=== PATIENT | male | born 1935 | race Caucasian/White ===

== ENCOUNTER 2022-01-10 07:18 | Outpatient (REF) | payer MEDICARE, SELFPAY ==
[2022-01-10 11:27] LABS: Basophils Percent Auto 0.6 % (0-2); Eosinophils Absolute Auto 0.5 X10*3/uL (0.0-0.4); Eosinophils Percent Auto 8.9 % (0-4); Hematocrit 45.2 % (42.0-52.0); Imm Gran Abs Auto 0.02 X10*3/uL (0.00-0.03); Imm Gran Pct Auto 0.4 % (0.0-0.4); Lymphocytes Absolute Auto 1.5 X10*3/uL (1.2-4.9); Lymphocytes Percent Auto 29.7 % (20-40); MANUAL DIFF FLAG SCAN; Mean Corpuscular HGB Conc 33.2 g/dl (31.0-36.0); Mean Corpuscular Volume 93.4 fL (80.0-98.0); Monocytes Absolute Auto 0.6 X10*3/uL (0.1-1.2); Monocytes Percent Auto 12.3 % (2-11); Neutrophils Absolute Auto 2.4 x10*3/uL (2.0-8.3); Neutrophils Percent Auto 48.1 % (45-73); PLT CLUMP 1; Red Blood Count 4.84 X10*6/uL (4.60-5.80); Red Cell Distribution Width 12.1 % (11.0-16.0); SCAN SMEAR FLAG 1
[2022-01-10 11:30] LABS: Appearance Urine HAZY; Color Urine YELLOW; Glucose Urine UA NEG (NEG); Leukocyte Esterase Urine 1+ (NEG); Nitrite Urine POS (NEG); Specific Gravity - Urine 1.025 (1.005-1.025); Urine Blood 2+ (NEG); Urine Ketones NEG (NEG); Urine Protein 1+ MG/DL (NEG-TRACE)
[2022-01-10 11:45] LABS: White Blood Count 5.1 X10*3/uL (4.8-10.8)
[2022-01-10 11:46] LABS: Platelet Count 25 X10*3/uL (160-400)
[2022-01-10 11:47] LABS: SLIDE REVIEW VERIFIED; Squamous Epithelial Cell Urine TRACE /LPF
[2022-01-10 11:48] LABS: Bacteria Urine 1+ /LPF; RBC Urine 0-2 /HPF (0)
[2022-01-10 11:49] LABS: Alanine Aminotransferase 16 U/L (0-40); Alkaline Phosphatase 64 U/L (39-117); Anion Gap 11 (12-20); Aspartate Amino Transferase 20 U/L (5-37); Bilirubin Total 0.8 mg/dL (0.0-1.0); Blood Urea Nitrogen 11 mg/dL (9-16); Calcium 8.8 mg/dL (8.4-10.2); Carbon Dioxide 27 mmol/L (22-29); Chloride 110 mmol/L (96-108); Cholesterol 217 mg/dL; Estimated Glomerular Filt Rate > 60; Glucose Fasting 103 mg/dL (60-99); HDL Cholesterol 40 mg/dL; LDL Cholesterol Calculated 156 mg/dl; Potassium 4.5 mmol/L (3.3-5.1); Sodium 143 mmol/L (135-145); Total Protein 6.5 g/dL (6.5-8.0); Triglycerides 107 mg/dL
[2022-01-10 12:00] LABS: Prostate Specific Antigen Scr 5.53 ng/mL (<0.05-4.0); TSH reflex Free T4 2.12 uIU/mL (0.32-4.0)
== END 2022-01-10 07:19 | disposition home or self-care (01) ==
LOC: HO.WFDLDS 07:18
PROVIDERS: Visit Provider Family Medicine
DX: Z00.00 Encounter for general adult medical examination without abnormal findings (principal); Z12.5 Encounter for screening for malignant neoplasm of prostate
CPT/HCPCS: 36415; 80053; 80061; 81001; 84153; 84443; 85025

== ENCOUNTER 2022-01-12 09:57 | Outpatient (REF) | payer MEDICARE, SELFPAY ==
[2022-01-12 10:55] LABS: Appearance Urine HAZY; Color Urine YELLOW; Glucose Urine UA NEG (NEG); Leukocyte Esterase Urine 2+ (NEG); Nitrite Urine POS (NEG); Urine Blood TRACE (NEG); Urine Ketones NEG (NEG); Urine Protein NEG (NEG-TRACE)
[2022-01-12 11:16] LABS: WBC Urine TNTC /HPF (0-4)
[2022-01-12 11:17] LABS: Bacteria Urine TRACE /LPF; Squamous Epithelial Cell Urine 1+ /LPF
== END 2022-01-12 09:58 | disposition home or self-care (01) ==
LOC: HO.LAB 09:57
PROVIDERS: Visit Provider Family Medicine
DX: R82.90 Unspecified abnormal findings in urine (principal)
CPT/HCPCS: 81001; 87086; 87088; 87186

== ENCOUNTER 2022-03-03 07:51 | Outpatient (REF) | payer MEDICARE, SELFPAY ==
[2022-03-03 11:30] LABS: MANUAL DIFF FLAG NO
[2022-03-03 11:43] LABS: Basophils Absolute Auto 0.1 X10*3/uL (0.0-0.2); Basophils Percent Auto 0.9 % (0-2); Eosinophils Absolute Auto 0.5 X10*3/uL (0.0-0.4); Eosinophils Percent Auto 8.7 % (0-4); Hematocrit 46.6 % (42.0-52.0); Hemoglobin 15.7 g/dl (14.0-18.0); Imm Gran Abs Auto 0.02 X10*3/uL (0.00-0.03); Imm Gran Pct Auto 0.3 % (0.0-0.4); Lymphocytes Absolute Auto 1.4 X10*3/uL (1.2-4.9); Lymphocytes Percent Auto 24.3 % (20-40); Mean Corpuscular HGB Conc 33.7 g/dl (31.0-36.0); Mean Corpuscular Hemoglobin 31.3 pg (27.0-33.0); Mean Platelet Volume 13.6 fL (9.4-12.4); Monocytes Absolute Auto 0.6 X10*3/uL (0.1-1.2); Monocytes Percent Auto 9.7 % (2-11); Neutrophils Absolute Auto 3.2 x10*3/uL (2.0-8.3); Neutrophils Percent Auto 56.1 % (45-73); Red Blood Count 5.01 X10*6/uL (4.60-5.80); Red Cell Distribution Width 12.3 % (11.0-16.0); White Blood Count 5.8 X10*3/uL (4.8-10.8)
[2022-03-03 11:44] LABS: Platelet Count 32 X10*3/uL (160-400)
[2022-03-03 12:05] LABS: INTERNATIONAL NORM RATIO 0.9 (0.9-1.1); Prothrombin Time 10.6 SEC (10.0-13.1)
[2022-03-03 12:08] LABS: Partial Thromboplastin Time 32.5 SEC (26.0-36.4)
[2022-03-03 12:14] LABS: Lactate Dehydrogenase 198 U/L (118-273)
[2022-03-03 12:28] LABS: Erythrocyte Sedimentation Rate 6 MM/HR (0-15)
[2022-03-04 08:06] LABS: HBc Num1 0.11 S/CO (0.00-0.79); HIV AB/AG Nonreactive (Nonreactive); HIV Num 1 0.06 S/CO (0.00-0.99); Hepatitis B Core Antibody Nonreactive (Nonreactive); Hepatitis B Surface Antigen Negative (Negative); ~HepC Num1 0.08 S/CO (0.00-0.79); ~Hepatitis B Surface Antibody NONREACTIVE (Nonreactive); ~Hepatitis C Antibody Nonreactive (Nonreactive)
[2022-03-05 23:12] LABS: Anti Nuclear Antibody Screen NEGATIVE (NEGATIVE)
== END 2022-03-03 07:52 | disposition home or self-care (01) ==
LOC: HO.WFDLDS 07:51
PROVIDERS: Visit Provider Family Medicine
DX: Z00.00 Encounter for general adult medical examination without abnormal findings (principal); Z11.4 Encounter for screening for human immunodeficiency virus [HIV]; Z11.3 Encounter for screening for infections with a predominantly sexual mode of transmission; D69.6 Thrombocytopenia, unspecified
CPT/HCPCS: 36415; 83615; 85025; 85610; 85652; 85730; 86038; 86039; 86704; 86706; 86803; 87340; 87389

== ENCOUNTER 2022-03-30 08:22 | Outpatient (REF) | payer MEDICARE, SELFPAY ==
[2022-03-30 11:25] LABS: MANUAL DIFF FLAG NO
[2022-03-30 11:36] LABS: Basophils Percent Auto 0.8 % (0-2); Eosinophils Absolute Auto 0.5 X10*3/uL (0.0-0.4); Eosinophils Percent Auto 8.6 % (0-4); Hematocrit 44.4 % (42.0-52.0); Hemoglobin 15.1 g/dl (14.0-18.0); Imm Gran Abs Auto 0.02 X10*3/uL (0.00-0.03); Imm Gran Pct Auto 0.4 % (0.0-0.4); Lymphocytes Absolute Auto 1.5 X10*3/uL (1.2-4.9); Lymphocytes Percent Auto 27.2 % (20-40); Mean Corpuscular Hemoglobin 31.3 pg (27.0-33.0); Mean Corpuscular Volume 92.1 fL (80.0-98.0); Monocytes Absolute Auto 0.5 X10*3/uL (0.1-1.2); Monocytes Percent Auto 10.1 % (2-11); Neutrophils Absolute Auto 2.8 x10*3/uL (2.0-8.3); Neutrophils Percent Auto 52.9 % (45-73); Platelet Count 34 X10*3/uL (160-400); Red Blood Count 4.82 X10*6/uL (4.60-5.80); Red Cell Distribution Width 12.2 % (11.0-16.0); White Blood Count 5.3 X10*3/uL (4.8-10.8)
[2022-03-30 11:48] LABS: Alanine Aminotransferase 16 U/L (0-40); Albumin Level 4.1 g/dL (3.5-5.0); Alkaline Phosphatase 65 U/L (39-117); Anion Gap 14 (12-20); Aspartate Amino Transferase 21 U/L (5-37); Bilirubin Total 1.7 mg/dL (0.0-1.0); Blood Urea Nitrogen 12 mg/dL (9-16); Calcium 9.3 mg/dL (8.4-10.2); Carbon Dioxide 26 mmol/L (22-29); Chloride 109 mmol/L (96-108); Estimated Glomerular Filt Rate > 60; Glucose Random 95 mg/dL (60-115); Potassium 5.2 mmol/L (3.3-5.1); Sodium 144 mmol/L (135-145); Total Protein 6.5 g/dL (6.5-8.0)
[2022-03-30 12:14] LABS: Prostate Specific Antigen Scr 5.15 ng/mL (<0.05-4.0)
== END 2022-03-30 08:23 | disposition home or self-care (01) ==
LOC: HO.WFDLDS 08:22
PROVIDERS: Visit Provider Family Medicine
DX: Z00.00 Encounter for general adult medical examination without abnormal findings (principal); Z12.5 Encounter for screening for malignant neoplasm of prostate; D69.6 Thrombocytopenia, unspecified
CPT/HCPCS: 36415; 80053; 84153; 85025

== ENCOUNTER 2022-08-03 11:16 | Outpatient (REF) | payer MEDICARE, SELFPAY ==
[2022-08-03 14:35] LABS: Baso%MD 0.6 %; Eos%MD 6.4 %; Hematocrit 47.1 % (42.0-52.0); Hemoglobin 15.7 g/dl (14.0-18.0); IG%MD 0.3 %; Lymph%MD 23.6 %; Mean Corpuscular HGB Conc 33.3 g/dl (31.0-36.0); Mean Corpuscular Volume 92.9 fL (80.0-98.0); Mono%MD 10.9 %; Neut%MD 58.2 %; PLT CLUMP 1; Red Blood Count 5.07 X10*6/uL (4.60-5.80); Red Cell Distribution Width 12.2 % (11.0-16.0)
[2022-08-03 14:46] LABS: Anion Gap 13 (12-20); Blood Urea Nitrogen 14 mg/dL (9-16); Calcium 9.4 mg/dL (8.4-10.2); Carbon Dioxide 27 mmol/L (22-29); Chloride 108 mmol/L (96-108); Estimated Glomerular Filt Rate > 60; Glucose Random 89 mg/dL (60-115); Potassium 4.3 mmol/L (3.3-5.1); Sodium 144 mmol/L (135-145)
[2022-08-03 15:09] LABS: Band Neutrophils Percent 2 % (3-5); Basophils Percent Manual 1 % (0-2); Eosinophils Percent Manual 5 % (0-4); Lymphocytes Percent Manual 25 % (20-40); Monocytes Percent Manual 9 % (2-11); Neutrophils Percent Manual 58 % (45-73)
[2022-08-03 15:11] LABS: RBC Morphology NORMAL
[2022-08-03 15:12] LABS: Giant Platelet PRESENT; Large Platelet PRESENT; Platelet Estimate DECREASED (NORMAL); Platelet Morphology Comment NOTED
[2022-08-03 15:14] LABS: Basophils Abs Manual 0.1 X10*3/uL (0.0-0.2); Eosinophils Absolute Manual 0.3 X10*3/uL (0.0-0.4); Lymphocytes Absolute Manual 1.6 X10*3/uL (1.2-4.9); Monocytes Absolute Manual 0.6 X10*3/uL (0.1-1.2); Neutrophils Absolute Manual 3.7 X10*3/uL (2.0-8.3); Platelet Count 41 X10*3/uL (160-400); White Blood Count 6.2 X10*3/uL (4.8-10.8)
== END 2022-08-03 11:17 | disposition home or self-care (01) ==
LOC: HO.WFDLDS 11:16
PROVIDERS: Visit Provider Family Medicine
DX: Z00.00 Encounter for general adult medical examination without abnormal findings (principal); D69.6 Thrombocytopenia, unspecified
CPT/HCPCS: 36415; 80048; 85007; 85027

== ENCOUNTER 2023-03-08 08:53 | Outpatient (AMB) | payer MEDICARE, SELFPAY ==
[2023-03-08 08:56] VITALS: BP 130/74; PULSE 48; O2SAT 99; BMI 25.0
--- NOTE | 2023-03-08 08:56 | A.OFFPC_ITS ---
Vital Signs 03/08/23 08:56 Height 5 ft 11.5 in Weight 181 lb 8 oz BMI 25.0 BP 130/74 Blood Pressure Location Lt brachial Pulse 48 L Pulse Source Pulse Oximeter Pulse Oximetry (%) 99 Oxygen Delivery Method Room Air Intake Visit Reasons: Extended exam with f/u labs and health maint. Intake Note: Patient is here for extended exam today, did not get his labs done. Allergies No Known Allergies Allergy (Verified 03/08/23 09:01) Tobacco use date assessed: 03/08/23 Fall risk assessment: No Falls in past year Last assessed Fall Risk: 03/08/23 Dental Screening Dental Screen Date: 03/08/23 Did you have a dental visit in the last 12 months?: Yes Did you have a dental problem in the last 6 months where you did not have access to dental care?: No Was dental information given to patient?: Patient has dentist HPI Extended exam with f/u labs and health maint. HPI Details 87 y/o male presents for an extended exam with f/u labs and health maintenance. No recent labs to review. Pt had declined further workup for significant thrombocytopenia despite explaining to pt. that he could have a significant or even life threatening internal bleed. HPI Comments History of Present Illness Details Documentation assistance for Wyatt Rizo MD, was provided by Edvin Redmond, [employer] on 03/08/2023 9:40 AM ADRIANA. Koko, Dr. Rizo, have read, observed, and verified documentation. [facility] Medical History History of blood clots Right leg DVT Social History Housing: House Patient Tobacco Use Status: Never used Tobacco e-Cigarette/Vaping Use: Never Used Second Hand Smoke Exposure: No service: Yes Current occupational status: retired Current occupational exposures/hazards: No Cognitive needs: No Hearing needs: No Vision needs: Yes Questionnaire PHQ-9 Over the last 2 weeks, how often have you been bothered by any of the following problems? 1. Little interest or pleasure in doing things: not at all 2. Feeling down, depressed, or hopeless: not at all 3. Trouble falling or staying asleep, or sleeping too much: not at all 4. Feeling tired or having little energy: not at all 5. Poor appetite or overeating: not at all 6. Feeling bad about yourself - or that you are a failure or have let yourself or your family down: not at all 7. Trouble concentrating on things, such as reading the newspaper or watching television: not at all 8. Moving or speaking so slowly that other people could have noticed. Or the opposite - being so fidgety or restless that you have been moving around a lot more than usual: not at all 9. Thoughts that you would be better off or of hurting yourself in some way: not at all Total score: 0 Source: Developed by Drs. Billy Cates, Niru Downs, Jagjit Lilly and colleagues, with an educational eric from [employer]. Thrive Questionnaire Date Thrive assessed: 11/15/21 I am a: Patient What is your living situation today?: I have a steady place to live Within the past 12 months, did the food you bought not last and you didn't have the money to get more?: Never true Within the past 12 months, did you worry whether your food would run out before you got money to buy more?: Never true Do you have trouble paying for medicines?: No Do you have trouble getting transportation to medical appointments?: No Do you have trouble paying your heating and electricity bill?: No Do you have trouble taking care of your child, family member or friend?: No Do you have trouble with day-to-day activities such as bathing, preparing meals, shopping, managing finances, etc.?: No Are you currently unemployed and looking for a job?: No Are you interested in more education?: No AUDIT C Alcohol Use Questionnaire (AUDIT-C) 1. How often do you have a drink containing alcohol?: Never 3. How often do you have six or more drinks on one occasion?: Never Total Score: 0 CHEY-7 AMB Questionnaire CHEY-7 Date CHEY - 7 assessed: 03/08/23 Feeling nervous, anxious, or on edge: 0 = Not at all Not being able to stop or control worryin = Not at all Worrying too much about different things: 0 = Not at all Trouble relaxin = Not at all Being so restless that it is hard to sit still: 0 = Not at all Becoming easily annoyed or irritable: 0 = Not at all Feeling afraid as if something awful might happen: 0 = Not at all Total CHEY-7 score (0-4 normal; 5-9 mild; 10-14 moderate; 15-21 severe): 0 Source: Developed by Drs. Billy Cates, Niru Downs, Jagjit Lilly and colleagues, with an educational eric from [employer]. Review of Systems Const Denies chills, Denies fatigue, Denies fever(s), Denies headache(s) and Denies weakness Eyes Denies change in vision ENT Denies dizziness, Denies headache(s), Denies hearing loss, Denies nasal congestion, Denies sinus pain, Denies sinus pressure and Denies sore throat Card Denies chest pain, Denies lightheadedness, Denies dyspnea and Denies other (palpitations) Resp Denies cough, Denies dyspnea and Denies wheezing GI Denies abdominal pain, Denies melena, Denies hematochezia, Denies change in bowel habits, Denies dyspepsia and Denies nausea Denies hematuria and Denies dysuria Musc Denies abnormal gait, Denies myalgias, Denies arthralgias, Denies numbness and Denies tingling Skin/Breast Denies rash, Denies unusual bruising and Denies wounds Neuro Denies abnormal gait, Denies dizziness, Denies headache(s), Denies memory loss, Denies numbness, Denies Sensory deficit (Neuro), Denies tingling and Denies weakness Psych Denies anxiety, Denies depression and Denies memory loss Endo Denies cold intolerance, Denies fatigue, Denies heat intolerance, Denies polydipsia and Denies polyuria Carlos/Lymph Denies easy bleeding and Denies easy bruising Aller/Immun Denies wheezing Physical exam (Primary Care) Vital Signs: Last Vital Signs Pulse 48 L 03/08/23 08:56 BP 130/74 03/08/23 08:56 Pulse Ox 99 03/08/23 08:56 Oxygen Delivery Method Room Air 03/08/23 08:56 BMI result Body Mass Index 25.0 Tobacco/Smoking Status: Tobacco use Status Tobacco use date assessed 03/08/23 03/08/23 09:04 Patient Tobacco Use Status Never used Tobacco 03/08/23 09:00 e-Cigarette/Vaping Use Never Used 03/08/23 09:00 PHQ-9: PHQ-9 Score PHQ-9: Total score 0 03/08/23 09:14 Thrive Assessment: Date of Thrive Assessment Date Thrive assessed 11/15/21 03/08/23 09:00 Const General: no acute distress, well developed, alert and awake Nutritional Appearance: well nourished Orientation/consciousness: patient oriented x3 HENMT Head: Yes normocephalic and Yes atraumatic Ears: hearing grossly normal bilaterally and TM's normal bilaterally General nose exam: Normal external nose present and Normal nares present Mouth: Normal oral and palatal mucosa present and moist mucous membranes Teeth and gingiva: dentition normal Throat: Yes posterior oropharynx normal Eyes General: appearance normal, both eyes and all related structures Pupils: Equal, round and reactive pupils present and Pupil accommodation reflex normal EOM: EOMs intact bilaterally Neck Neck: Yes normal visual inspection, Yes no lymphadenopathy and Yes trachea midline Thyroid: Thyroid normal Carotids: no bruits Lymphatic: no lymphadenopathy noted Chest Chest palpation & inspection: normal inspection of the chest Resp Effort & Inspection: normal respiratory effort Auscultation: clear to auscultation bilaterally Cardio Rate: regular rate Rhythm: regular rhythm Heart sounds: S1 normal heart sound present, S2 normal heart sound present, no gallops, no murmurs and no rubs Bruits: no abdominal aortic bruits and no carotid bruits GI Palpation (GI): No Abdominal aortic bruit present, Soft to palpation, nontender, No hepatosplenomegaly present and No Rebound tenderness present Auscultation: normal bowel sounds General: Yes no CVA tenderness Back/Spine/Pelvis Back: no CVA tenderness Cervical Spine: cervical ROM normal and No Cervical spine tenderness Thoracic/Lumbar Spine: thoraco-lumbar ROM normal, No pain with thoraco-lumbar ROM, No thoracic spinal tenderness and No lumbar spinal tenderness Skin Lesions: no lesions Rashes: no rashes Trauma: no lacerations or abrasions Wounds: no wounds Nails: normal Neuro General: patient oriented x3 Cranial nerves: Yes Equal, round and reactive pupils present Cognition (Neuro): normal cognition Gait exam (Neuro): Normal gait present Motor exam (neuro): 5/5 motor strength present throughout Sensory Exam: No Sensory deficit (Neuro) Deep tendon reflexes (DTR's): Right patellar reflex intensity grade: 2+ and Left patellar reflex intensity grade: 2+ Extrem General: Yes normal to inspection and No edema Psych Appearance: grossly normal Affect: normal affect Attitude: cooperative Thought process: Normal thought process present Assessment and Plan Assessment & Plan (1) Thrombocytopenia: Code(s): D69.6 - Thrombocytopenia, unspecified Plan: Recheck labs Pt declines referral to Heme-Onc Will follow & advise pt (2) Adult general medical exam: Code(s): Z00.00 - Encounter for general adult medical examination without abnormal findings Plan: 87-year-old male presents for an extended exam Encouraged healthy diet with active lifestyle and plenty of exercise. Coding Level of Care Code Est Pt Level 4 (46612) Diagnoses Thrombocytopenia D69.6 Adult general medical exam Z00.00
== END 2023-03-08 09:57 | disposition home or self-care (01) ==
PROVIDERS: PCP Family Medicine; Visit Provider Family Medicine
DX: D69.6 Thrombocytopenia, unspecified (principal); Z00.00 Encounter for general adult medical examination without abnormal findings
CPT/HCPCS: 99214

== ENCOUNTER 2023-03-15 08:34 | Outpatient (REF) | payer MEDICARE, SELFPAY ==
[2023-03-15 11:36] LABS: MANUAL DIFF FLAG NO
[2023-03-15 11:57] LABS: Appearance Urine Cloudy; Color Urine Yellow; Glucose Urine UA Negative (Negative); Leukocyte Esterase Urine Large (3+) (Negative); Nitrite Urine Negative (Negative); UMIC TRIGGER UA YES; Urine Blood Small (1+) (Negative); Urine Ketones Negative (Negative); Urine Protein 30 (1+) mg/dL (Neg-Trace)
[2023-03-15 11:59] LABS: Bacteria Urine None Seen (None Seen); Hyaline Casts Urine 0-2 /LPF (0-2); Squamous Epithelial Cell Urine 0-2 /HPF (0-2); WBC Urine >50 /HPF (0-5)
[2023-03-15 12:10] LABS: Basophils Absolute Auto 0.1 X10*3/uL (0.0-0.2); Basophils Percent Auto 0.8 % (0-2); Eosinophils Absolute Auto 0.6 X10*3/uL (0.0-0.4); Eosinophils Percent Auto 8.6 % (0-4); Hematocrit 47.7 % (42.0-52.0); Imm Gran Abs Auto 0.02 X10*3/uL (0.00-0.03); Imm Gran Pct Auto 0.3 % (0.0-0.4); Lymphocytes Absolute Auto 1.6 X10*3/uL (1.2-4.9); Lymphocytes Percent Auto 24.2 % (20-40); Mean Corpuscular HGB Conc 33.5 g/dl (31.0-36.0); Mean Corpuscular Hemoglobin 31.5 pg (27.0-33.0); Mean Corpuscular Volume 93.9 fL (80.0-98.0); Mean Platelet Volume 13.9 fL (9.4-12.4); Monocytes Absolute Auto 0.5 X10*3/uL (0.1-1.2); Monocytes Percent Auto 8.3 % (2-11); Neutrophils Absolute Auto 3.8 x10*3/uL (2.0-8.3); Neutrophils Percent Auto 57.8 % (45-73); Red Blood Count 5.08 X10*6/uL (4.60-5.80); Red Cell Distribution Width 12.2 % (11.0-16.0); White Blood Count 6.5 X10*3/uL (4.8-10.8)
[2023-03-15 12:15] LABS: Platelet Count 34 X10*3/uL (160-400)
[2023-03-15 12:38] LABS: Alanine Aminotransferase 11 U/L (0-40); Albumin Level 4.1 g/dL (3.5-5.0); Alkaline Phosphatase 63 U/L (39-117); Anion Gap 11 (12-20); Aspartate Amino Transferase 15 U/L (5-37); Bilirubin Total 1.2 mg/dL (0.0-1.0); Blood Urea Nitrogen 14 mg/dL (9-16); Carbon Dioxide 28 mmol/L (22-29); Chloride 110 mmol/L (96-108); Cholesterol 234 mg/dL (<200); Estimated Glomerular Filt Rate > 60; Glucose Fasting 94 mg/dL (60-99); HDL Cholesterol 45 mg/dL (>40); LDL Cholesterol Calculated 168 mg/dL (<100); Potassium 4.8 mmol/L (3.3-5.1); Sodium 144 mmol/L (135-145); Triglycerides 106 mg/dL (<150)
[2023-03-15 12:55] LABS: TSH reflex Free T4 1.97 uIU/mL (0.32-4.0)
== END 2023-03-15 08:35 | disposition home or self-care (01) ==
LOC: HO.WFDLDS 08:34
PROVIDERS: Visit Provider Family Medicine
DX: Z00.00 Encounter for general adult medical examination without abnormal findings (principal); R82.90 Unspecified abnormal findings in urine; D69.6 Thrombocytopenia, unspecified; E78.00 Pure hypercholesterolemia, unspecified
CPT/HCPCS: 36415; 80053; 80061; 81001; 84443; 85025; 87086; 87088; 87186

== ENCOUNTER 2023-04-05 16:39 | Outpatient (AMB) | payer MEDICARE, SELFPAY ==
--- NOTE | 2023-04-05 16:34 | MHC.PC.OV ---
Intake Visit Reasons: f/u CPE-labs Intake Note: Patient is following up on his blood work today. Allergies No Known Allergies Allergy (Verified 04/05/23 16:36) Tobacco use date assessed: 04/05/23 Last assessed Fall Risk: 04/05/23 Dental Screening Dental Screen Date: 04/05/23 Did you have a dental visit in the last 12 months?: Yes Did you have a dental problem in the last 6 months where you did not have access to dental care?: No Was dental information given to patient?: Patient has dentist HPI f/u CPE-labs HPI Details 87 y/o male presents to f/u CPE-labs via telemedicine. Labs were drawn 03/15/23. Reviewed labs with pt. TC 234. LDL 168. HDL 45. 6-10 Urine RBC, urine WBC >50. He denies any blood in his stools or nosebleeds. PSA had been elevated last year. [facility] Medical History (Reviewed 03/08/23 @ 09:03 by January Dumont [facility]) History of blood clots Right leg DVT Social History (Reviewed 03/08/23 @ 09:03 by January Dumont [facility]) Housing: House Patient Tobacco Use Status: Never used Tobacco e-Cigarette/Vaping Use: Never Used Second Hand Smoke Exposure: No service: Yes Current occupational status: retired Current occupational exposures/hazards: No Cognitive needs: No Hearing needs: No Vision needs: Yes Questionnaire Thrive Questionnaire Date Thrive assessed: 11/15/21 CHEY-7 AMB Questionnaire CHEY-7 Date CHEY - 7 assessed: 03/08/23 Source: Developed by Drs. Billy Cates, Niru Downs, Jagjit Lilly and colleagues, with an educational eric from [employer]. Review of Systems Const Denies chills, Denies fatigue, Denies fever(s), Denies headache(s) and Denies weakness ENT Denies dizziness and Denies headache(s) Card Denies dyspnea Resp Denies cough, Denies dyspnea, Denies wheezing and Denies other (shortness of breath) Musc Denies numbness and Denies tingling Neuro Denies dizziness, Denies headache(s), Denies numbness, Denies tingling and Denies weakness Psych Denies anxiety and Denies depression Endo Denies fatigue Aller/Immun Denies wheezing Physical exam (Primary Care) Tobacco/Smoking Status: Tobacco use Status Tobacco use date assessed 04/05/23 04/05/23 16:37 Patient Tobacco Use Status Never used Tobacco 04/05/23 16:37 e-Cigarette/Vaping Use Never Used 04/05/23 16:37 Thrive Assessment: Date of Thrive Assessment Date Thrive assessed 11/15/21 04/05/23 16:37 Telehealth Telehealth Location of provider rendering services: practice address Location of patient: address on file Patient Identification confirmed using: Name, : Yes Telehealth method: voice only Patient verbally consented to treatment: Yes Patient verbally consented to billing insurance company: Yes Patient informed of any privacy concerns related to visit: Yes Assessment and Plan Assessment & Plan (1) Thrombocytopenia: Code(s): D69.6 - Thrombocytopenia, unspecified Plan: Longstanding?thrombocytopenia Patient?and?I?have?had?numerous?conversations?regarding?this?and?his?platelet?count?is?low?enough?for?potential?for?severe?GI?bleeding?or?even?spontaneous?bleeding. He?declines?treatment?or?referral?to?Hematology-Oncology. Will?continue?to?monitor?and?advised?him?if?he?has?bleeding?that?he?has?any?difficulty?controlling,?he?should?go?to?the?emergency?department?immediately.??Patient?understands. (2) Hypercholesterolemia: Code(s): E78.00 - Pure hypercholesterolemia, unspecified Plan: LDL?cholesterol?is?too?high. Discussed?statin?medication?but?patient?declines?this. (3) Elevated PSA: Code(s): R97.20 - Elevated prostate specific antigen [PSA] Plan: History?of?elevated?PSA?level. Also?abnormal?urinalysis Referred?him?to?urology?but?he?declines?this (4) Abnormal urine findings: Code(s): R82.90 - Unspecified abnormal findings in urine Plan: As?above (5) Abnormal urinalysis: Code(s): R82.90 - Unspecified abnormal findings in urine Orders: Referrals Urology Referral R82.90 - Unspecified abnormal findings in urine, R97.20 - Elevated prostate specific antigen [PSA] Coding Level of Care Code Tele Est Pt Level 2 (23509) Diagnoses Thrombocytopenia D69.6 Hypercholesterolemia E78.00 Elevated PSA R97.20 Abnormal urine findings R82.90 Abnormal urinalysis R82.90
== END 2023-04-05 16:50 ==
LOC: HO.HMGFM 16:39
PROVIDERS: PCP Family Medicine; Visit Provider Family Medicine
DX: D69.6 Thrombocytopenia, unspecified (principal); E78.00 Pure hypercholesterolemia, unspecified; R97.20 Elevated prostate specific antigen [PSA]; R82.90 Unspecified abnormal findings in urine
CPT/HCPCS: 99441

== ENCOUNTER 2024-11-13 08:03 | Outpatient (REF) | payer MEDICARE, SELFPAY ==
--- OUTSIDE RECORDS SUMMARY | 2024-11-13 08:07 | XMS_ITS | Clinical Summary ---
Author Organization [facility] Address [address] [place] [address] Care Team Providers Care Manager Fraud Name Role Phone Seth Gomez MD Primary Care Provider Unavail able Allergies No known active allergies Medications Medication Sig Dispensed Refills Start Date End Date Status Menthol-Zinc Oxide (CALMOSEPTINE) 0.44-20.6 % Ointment Apply 1 Each topically 4 times daily. 1 Tube 11 04/20/2015 Active mometasone (ELOCON) 0.1 % cream Apply sparingly twice a day to eczema as needed 45 g 1 03/22/2016 Active fluoruracil (CARAC) 0.5 % cream Apply sparingly twice a day to affected areas on face for 2 weeks 30 g 0 03/22/2016 Active Active Problems Problem Noted Date Hypercholesterolemia 04/17/2013 Hypertension 04/17/2013 Family History Relation Name Status Comments Brother Alive unknown Daughter Alive healthy Father unknown Maternal Grandfather unknown Maternal Grandmother unknown Mother tumor Paternal Grandfather (Age 72) [place] Paternal Grandmother unknown Social History Tobacco Use Types Packs/Day Years Used Date Smoking Tobacco: Never Alcohol Use Standard Drinks/Week Comments Not Asked 0 (1 standard drink = 0.6 oz pur e alcohol) Sex Assigned at Date Recorded Not on file Last Filed Vital Signs Vital Sign Reading Time Taken Comments Blood Pressure 136/70 03/22/2016 10:50 AM EDT Pulse 60 03/22/2016 10:50 AM EDT Temperature 36.9 ??C (98.5 ??F) 03/22/2016 10:50 AM E DT Respiratory Rate 16 03/22/2016 10:50 AM EDT Oxygen Saturation - - Inhaled Oxygen Concentration - - Weight 88 kg (194 lb) 04/20/2015 2:54 PM EDT Height 175.3 cm (5' 9 ) 04/15/2015 1:27 PM EDT Body Mass Index 28.65 04/15/2015 1:27 PM EDT Plan of Treatment Health Maintenance Due Date Last Done Comments Covid-19 Vaccine (#1) 06/21/1936 TOBACCO CHECK/ADVISE 12/20/1953 DTAP/TDAP/TD (1 - Tdap) 12/20/1954 SHINGLES VACCINE (1 of 2) 12/20/1985 PNEUMOCOCCAL VACCINE (1 - PCV) 12/20/2000 DEPRESSION SCREEN 12/16/2015 12/15/2014, 04/16/2013 FALL RISK ASSESSMENT 12/16/2015 12/15/2014, 04/16/20 CHOLESTEROL SCREENING 04/19/2018 04/19/2013 BMI CHECK/ADVISE 07/03/2024 03/22/2016 INFLUENZA (Season Ended) 2025 Care Teams Manager Fraud Relationship Specialty Start Date End Date Seth Gomez MD PCP - General Internal Medicine 10/07/15
[2024-11-13 11:27] LABS: Alanine Aminotransferase 14 U/L (0-40); Alkaline Phosphatase 60 U/L (39-117); Anion Gap 12 (12-20); Aspartate Amino Transferase 24 U/L (5-37); Bilirubin Total 1.2 mg/dL (0.0-1.0); Blood Urea Nitrogen 16 mg/dL (9-16); Calcium 8.9 mg/dL (8.4-10.2); Carbon Dioxide 26 mmol/L (22-29); Chloride 109 mmol/L (96-108); Cholesterol 195 mg/dL (<200); Estimated Glomerular Filt Rate > 60; Glucose Fasting 94 mg/dL (60-99); HDL Cholesterol 41 mg/dL (>40); LDL Cholesterol Calculated 133 mg/dL (<100); Potassium 4.5 mmol/L (3.3-5.1); Sodium 142 mmol/L (135-145); Total Protein 7.4 g/dL (6.5-8.0); Triglycerides 105 mg/dL (<150)
== END 2024-11-13 08:04 | disposition home or self-care (01) ==
LOC: HO.WFDLDS 08:03
PROVIDERS: Visit Provider Family Medicine
DX: Z00.00 Encounter for general adult medical examination without abnormal findings (principal); E78.00 Pure hypercholesterolemia, unspecified
CPT/HCPCS: 36415; 80053; 80061

== ENCOUNTER 2024-11-26 13:43 | Outpatient (REF) | payer MEDICARE, SELFPAY ==
[2024-11-26 18:05] LABS: Appearance Urine Cloudy; Color Urine Yellow; Glucose Urine UA Negative (Negative); Leukocyte Esterase Urine Large (3+) (Negative); Nitrite Urine Positive (Negative); PH 5.5 (5.0-9.0); UMIC TRIGGER UACC YES; Urine Blood Trace (Negative); Urine Ketones Negative (Negative); Urine Protein Trace mg/dL (Neg-Trace)
[2024-11-26 18:48] LABS: Bacteria Urine Trace (None Seen); Hyaline Casts Urine 0-2 /LPF (0-2); RBC Urine 0-2 /HPF (0-2); Squamous Epithelial Cell Urine 0-2 /HPF (0-2); UACC Culture Trigger YES; WBC Urine >50 /HPF (0-5)
== END 2024-11-26 13:44 | disposition home or self-care (01) ==
LOC: HO.LAB 13:43
PROVIDERS: PCP Family Medicine; Visit Provider Family Medicine
DX: Z00.00 Encounter for general adult medical examination without abnormal findings (principal); R82.90 Unspecified abnormal findings in urine; E78.00 Pure hypercholesterolemia, unspecified; R97.20 Elevated prostate specific antigen [PSA]; R33.9 Retention of urine, unspecified; Z12.5 Encounter for screening for malignant neoplasm of prostate
CPT/HCPCS: 81001; 87086; 87088; 87186; 96127; 99212

== ENCOUNTER 2024-11-26 13:43 | Outpatient (AMB) | payer MEDICARE, SELFPAY ==
--- NOTE | 2024-11-26 14:08 | A.OFFPC_ITS ---
Vital Signs 11/26/24 14:11 Height 5 ft 10 in Weight 177 lb 8 oz BMI 25.5 BP 136/70 Blood Pressure Location Rt brachial Position Sitting Respiration 14 Pulse 68 Pulse Source Pulse Oximeter Temp 97.8 F Temp Source Oral Pulse Oximetry (%) 97 Oxygen Delivery Method Room Air Intake Visit Reasons: f/u Lipid and urinary retention Intake Note: patient has a follow-up for lipid and patient said that he has cloudiness in urine. Allergies No Known Allergies Allergy (Verified 11/26/24 14:08) Medication List - Last Reconciled 11/26/24 by Wyatt Rizo MD halobetasol propionate 0.05% 1 appl topical BID 14 days Tobacco use date assessed: 11/26/24 Fall risk assessment: No Falls in past year Dental Screening Dental Screen Date: 11/26/24 Did you have a dental visit in the last 12 months?: Yes Did you have a dental problem in the last 6 months where you did not have access to dental care?: No Was dental information given to patient?: No HPI f/u Lipid and urinary retention HPI Details 88 y/o male presents to f/u lipids, urin cynthia retention. Labs drawn 11/13/24. Reviewed labs with pt. Triglycerides 105. TC 195. LDL improved from 168 to 133. HDL 41. Pt reports cloudiness in his urine. [facility] Medical History History of blood clots Right leg DVT Social History Housing: House Patient Tobacco Use Status: Never used Tobacco e-Cigarette/Vaping Use: Never Used Second Hand Smoke Exposure: No service: Yes Current occupational status: retired Current occupational exposures/hazards: No Cognitive needs: No Hearing needs: No Vision needs: Yes Questionnaire PHQ-9 Over the last 2 weeks, how often have you been bothered by any of the following problems? 1. Little interest or pleasure in doing things: not at all 2. Feeling down, depressed, or hopeless: not at all 3. Trouble falling or staying asleep, or sleeping too much: not at all 4. Feeling tired or having little energy: not at all 5. Poor appetite or overeating: not at all 6. Feeling bad about yourself - or that you are a failure or have let yourself or your family down: not at all 7. Trouble concentrating on things, such as reading the newspaper or watching television: not at all 8. Moving or speaking so slowly that other people could have noticed. Or the opposite - being so fidgety or restless that you have been moving around a lot more than usual: not at all 9. Thoughts that you would be better off or of hurting yourself in some way: not at all Total score: 0 Depression Screening Interpretation: Negative Depression Screening Done: Yes Source: Developed by Drs. Billy Cates, Niru Downs, Jagjit Lilly and colleagues, with an educational eric from [employer]. Thrive Questionnaire Date Thrive assessed: 11/26/24 I am a: Patient What is your living situation today?: I have a steady place to live Within the past 12 months, did the food you bought not last and you didn't have the money to get more?: Never true Within the past 12 months, did you worry whether your food would run out before you got money to buy more?: Never true Do you have trouble paying for medicines?: No Do you have trouble getting transportation to medical appointments?: No Do you have trouble paying your heating and electricity bill?: No Do you have trouble taking care of your child, family member or friend?: No Do you have trouble with day-to-day activities such as bathing, preparing meals, shopping, managing finances, etc.?: No Are you currently unemployed and looking for a job?: No Are you interested in more education?: No Please select the resources that you would like help with: None Currently or been in a relationship where the following occur: No concerns reported THRIVE Score: 0 AUDIT C Alcohol Use Questionnaire (AUDIT-C) 1. How often do you have a drink containing alcohol?: Never Total Score: 0 CHEY-7 AMB Questionnaire CHEY-7 Date CHEY - 7 assessed: 11/26/24 Feeling nervous, anxious, or on edge: 0 = Not at all Not being able to stop or control worryin = Not at all Worrying too much about different things: 0 = Not at all Trouble relaxin = Not at all Being so restless that it is hard to sit still: 0 = Not at all Becoming easily annoyed or irritable: 0 = Not at all Source: Developed by Drs. Billy Cates, Niru Downs, Jagjit Lilly and colleagues, with an educational eric from [employer]. CHEY-7 Assessment Billing CHEY-7 Assessment Tool: CHEY-7 Assessment 82668 Review of Systems Const Denies chills, Denies fatigue, Denies fever(s), Denies headache(s) and Denies w eakness ENT Denies dizziness and Denies headache(s) Card Denies dyspnea Resp Denies cough, Denies dyspnea, Denies wheezing and Denies other (shortness of breath) Musc Denies numbness and Denies tingling Neuro Denies dizziness, Denies headache(s), Denies numbness, Denies tingling and Denies weakness Psych Denies anxiety and Denies depression Endo Denies fatigue Aller/Immun Denies wheezing Physical exam (Primary Care) Vital Signs: Last Vital Signs Temp 97.8 F 11/26/24 14:11 Pulse 68 11/26/24 14:11 Resp 14 11/26/24 14:11 BP 136/70 11/26/24 14:11 Pulse Ox 97 11/26/24 14:11 Oxygen Delivery Method Room Air 11/26/24 14:11 BMI result Body Mass Index 25.5 Tobacco/Smoking Status: Tobacco use Status Tobacco use date assessed 11/26/24 11/26/24 14:16 Patient Tobacco Use Status Never used Tobacco 11/26/24 14:16 e-Cigarette/Vaping Use Never Used 11/26/24 14:16 PHQ-9: PHQ-9 Score PHQ-9: Total score 0 11/26/24 14:16 Depression Screening Interpretation: Negative Thrive Assessment: Date of Thrive Assessment Date Thrive assessed 11/26/24 11/26/24 14:16 Currently or been in a relationship where the following occur: No concerns reported Const General: well developed; No acute distress Nutritional Appearance: well nourished Orientation/consciousness: patient oriented x3 HENMT Head: Yes normocephalic and Yes atraumatic Eyes General: appearance normal, both eyes and all related structures Pupils: Equal, round and reactive pupils present EOM: EOMs intact bilaterally Resp Effort & Inspection: normal respiratory effort Neuro General: patient oriented x3 and gait normal Cranial nerves: Yes Equal, round and reactive pupils present Psych Affect: normal affect Coding Level of Care Code Est Pt Level 3 (70040) Diagnoses Hypercholesterolemia E78.00 Abnormal urine findings R82.90 Additional Codes CHEY-7 Assessment Billing - CHEY-7 Assessment Tool: CHEY-7 Assessment 29855 ([id number]) Assessment & Plan Assessment & Plan (1) Hypercholesterolemia: Code(s): E78.00 - Pure hypercholesterolemia, unspecified Category: Medical Plan: LDL?cholesterol?is?too?high Will?give?him?a?small?dose?of?atorvastatin We?can?recheck?his?lipids?in?a?few?months (2) Abnormal urine findings: Code(s): R82.90 - Unspecified abnormal findings in urine Category: Medical Plan: Frequency?and?cloudy?urine Start?nitrofurantoin Increase?hydration Will?send?urine?to?lab?and?if?no?infection?he?can?discontinue?this Orders: Orders Lipid Panel Today E78.00 - Pure hypercholesterolemia, unspecified, Z00.00 - Encounter for general adult medical examination without abnormal findings Comprehensive [place]. Panel Fast Today E78.00 - Pure hypercholesterolemia, unspecified, Z00.00 - Encounter for general adult medical examination without abnormal findings Prostate Specific Antigen Scr Today R97.20 - Elevated prostate specific antigen [PSA], Z12.5 - Encounter for screening for malignant neoplasm of prostate Urine Culture Today R82.90 - Unspecified abnormal findings in urine UA CC w/rflx Micro + Cult Today R82.90 - Unspecified abnormal findings in urine, Z00.00 - Encounter for general adult medical examination without abnormal findings
[2024-11-26 14:11] VITALS: BP 136/70; PULSE 68; RESP 14; TEMP 36.6; O2SAT 97; BMI 25.5
== END 2024-11-26 14:50 | disposition home or self-care (01) ==
LOC: HO.HMCFM 13:44
PROVIDERS: PCP Family Medicine; Visit Provider Family Medicine
DX: E78.00 Pure hypercholesterolemia, unspecified (principal); R82.90 Unspecified abnormal findings in urine

== ENCOUNTER 2024-12-22 13:07 | Emergency (ER) | payer MEDICARE, SELFPAY ==
--- NOTE | ~2024-12-22 | CT_ITS ---
CLINICAL HISTORY: weakness. CT head without contrast. COMPARISON: None provided. FINDINGS: The visualized paranasal sinuses are clear. The mastoid air cells are clear. No calvarial fracture. Atherosclerotic intracranial vasculature. No evidence for mass or mass effect. No intracranial hemorrhage or abnormal extra-axial fluid collection. Basal ganglia mineralization present bilaterally. No CT evidence of acute infarct. The ventricles are proportional with the degree of moderate global cerebral volume loss without evidence of hydrocephalus. Basilar cisterns are patent. There are periventricular areas of low attenuation compatible with mild white matter small vessel disease. Posterior fossa appears unremarkable. IMPRESSION: 1. No acute intracranial findings. This document has been electronically signed by: Rafi Estrella MD on 12/22/2024 14:44:33
--- NOTE | ~2024-12-22 | CT_ITS ---
CLINICAL HISTORY: Weakness. Pnuemonia? CT chest without IV contrast. COMPARISON: None provided. FINDINGS: Marked enlargement of the left lobe of the thyroid with thyroid nodule measuring minimally 6.8 cm. No supraclavicular or axillary lymphadenopathy. Ascending aorta and main pulmonary artery are normal in caliber. No pericardial effusion. Coronary artery calcifications present within the LAD and RCA. Cardiomegaly. Small hiatal hernia. No mediastinal lymphadenopathy. No pleural effusion. Minimal atelectasis along the posterior lower lobes. Trachea and central airways are clear. No significant bronchial wall thickening. No bronchiectasis. Cholelithiasis present within the gallbladder neck. No pericholecystic inflammatory changes. Flowing marginal osteophytes present throughout the thoracic spine. No acute fracture or suspicious bone lesion. IMPRESSION: 1. No acute intrathoracic findings. No evidence of pneumonia. 2. Cardiomegaly with coronary artery atherosclerosis. 3. Small hiatal hernia. 4. Cholelithiasis present within the gallbladder neck. No additional evidence for cholecystitis. 5. Large left thyroid lobe nodule measuring minimally 6.8 cm. Recommend correlation with nonemergent thyroid ultrasound if not already performed. Thyroid nodule has mass effect upon the esophagus and trachea shifting them to the right. This document has been electronically signed by: Rafi Estrella MD on 12/22/2024 14:45:03
[2024-12-22 13:18] VITALS: BP 137/73; PULSE 93; RESP 18; TEMP 37.2; O2SAT 93; BMI 23.5
--- NOTE | 2024-12-22 13:26 | ED_ITS ---
HPI - General Adult General Chief complaint: Weakness Stated complaint: difficultly standing Time Seen by Provider: 12/22/24 14:07 Source: patient, family (), RN notes reviewed and old records reviewed Mode of arrival: wheelchair Limitations: no limitations History of Present Illness ED Provider: Felicitas [facility] narrative: Patient is an 89-year-old male with history of DVT in the past, not currently anticoagulated, hypercholesterolemia, thrombocytopenia presenting to the ED with complaining of weakness since this morning. states that he had difficulty sitting up in bed and getting out of bed this morning. also reports that during the night last night, the patient felt hot to touch, and patient reports feeling chills at that time. He was recently treated on 11/26 for a UTI, states he completed the full course of antibiotics as prescribed. He also reports 3 recent episodes of hematuria. Denies any headache, chest pain, or abdominal pain. Denies recent cough or dyspnea. Denies recent fevers. Denies nausea, vomiting, diarrhea or constipation. MD complaint: weakness Onset (ago): hour(s) Related Data Previous Rx's ?Medication ?Instructions ?Recorded halobetasol propionate 0.05 % 1 appl topical BID 14 da ys #50 08/03/22 topical ointment grams nitrofurantoin 100 mg PO BID 10 days #20 ca ps 11/26/24 monohydrate/macrocrystals 100 mg capsule (Macrobid) sulfamethoxazole 800 1 tab PO BID #13 tabs mg-trimethoprim 160 mg tablet (Bactrim DS) Allergies Allergy/AdvReac Type Severity Reaction Status Date / Time No Known Allergies Allergy Verified 12/22/24 13:24 Review of Systems 2 Review of Systems: as per HPI Yes all other systems are reviewed and are negative Constitutional: Constitutional: Reports as per HPI [facility] Past Medical History Medical History History of blood clots Right leg DVT Social History Social History Housing: House Patient Tobacco Use Status: Never used Tobacco Smoked in Last 30 Days: No e-Cigarette/Vaping Use: Never Used Second Hand Smoke Exposure: No Use of substances other than those prescribed or required for medical reasons: No Advance Directives: Yes Advance Directives Information Provided: Yes Advance Directives on File: No Do you have a plan to hurt others: No Plan service: Yes Current occupational status: retired Current occupational exposures/hazards: No Cognitive needs: No Hearing needs: No Vision needs: Yes Physical Exam ED Vital Signs: Vital Signs - 24 hr 12/22/24 13:18 12/22/24 14:43 12/22/24 16:54 Temperature 98.9 F 99.1 F 99.4 F Pulse Rate 93 79 84 Respiratory Rate 18 18 16 Blood Pressure 137/73 147/66 H 146/84 H Pulse Oximetry 93 95 98 Oxygen Delivery Method Room Air Room Air Room Air 12/22/24 16:56 Temperature 99.4 F Pulse Rate 84 Respiratory Rate 16 Blood Pressure 146/84 H Pulse Oximetry 98 Oxygen Delivery Method Room Air BMI result Body Mass Index 23.5 Vital signs have been reviewed and appear to be correct. Blood pressure normal. Heart rate normal. Respiratory rate normal. Temperature normal. Oxygen saturation initially low on room air. Const General: cooperative, healthy appearing and no acute distress Orientation/consciousness: oriented to person, oriented to place, oriented to time and patient oriented x3 Limitations: no limitations HENMT Head: Yes normocephalic and Yes atraumatic Ears: external ears normal General nose exam: Normal external nose present Face and sinus: Yes face symmetric Mouth: oropharynx normal and moist mucous membranes Throat: Yes uvula midline Eyes Pupils: Equal, round and reactive pupils present Neck Neck: Yes normal visual inspection and Yes supple Resp Effort & Inspection: normal respiratory effort and able to speak in complete sentences Auscultation: clear to auscultation bilaterally Cardio Rate: regular rate Rhythm: regular rhythm Heart sounds: S1 normal heart sound present and S2 normal heart sound present GI Palpation (GI): Soft to palpation and nontender Auscultation: normoactive bowel sounds General: Yes no CVA tenderness Back/Spine/Pelvis Back: no CVA tenderness Skin General skin exam: elasticity normal and turgor normal Neuro General: oriented to person, oriented to place, oriented to time, patient oriented x3, tone normal, moves all extremities, Normal light touch and pain sensation, no focal motor deficits, CN's II-XI intact bilaterally and deep tendon reflexes 2+ bilaterally Cranial nerves: Yes Equal, round and reactive pupils present Cognition (Neuro): normal cognition Motor exam (neuro): 5/5 motor strength present throughout, Normal motor muscle tone present throughout and Motor abnormalities not present Coordination: [id number] test normal and [id number]-[id number] test normal Romberg Test: Negative Extrem General: Yes full ROM, Yes no pedal edema and Yes no calf tenderness Left upper extremity: elbow/forearm (healing ecchymosis to proximal lateral forearm) Psych Mental Status: mental status grossly normal Affect: normal affect Thought process: Normal thought process present NIH Stroke Scale Internal: Initial- Upon Arrival Time: 14:17 Level of Consciousness: Alert Level of Consciousness Questions: Answers both questions correctly Level of Consciousness Commands: Performs both tasks correctly Best Gaze: Normal Visual: No visual loss Facial Palsy: Normal Motor Arm (Right): No drift Motor Arm (Left): No drift Motor Leg (Right): No drift Motor Leg (Left): No drift Limb Ataxia: Absent Sensory: Normal Best Language: No aphasia Dysarthia: Normal Extinction and Inattention: No abnormality Score: 0 Course Course Course Narrative: RME: 89 yold male present to the ED for blood in urine, dysuria, chills and feeling he has no balance. Patient described as fatigue, generalized weakness. patient denies dizziness, chest pain, shortness of breath, nausea, or vomitting. NIH score is zero. labs ordered. Medications Administered Discontinued Medications Generic Name Dose Route Start Last Admin Trade Name Kolby PRN Reason Stop Dose Admin Trimethoprim/Sulfamethoxazole 1 tab 12/22/24 16:16 12/22/24 16:46 Sulfamethox/Trimeth 800/160 Tablet PO 12/22/24 16:17 1 tab ONCE ONE Administration Medical Decision Making Medical Decision Making MDM Narrative: Patient is an 89-year-old male with history of DVT in the past, not currently anticoagulated, hypercholesterolemia, thrombocytopenia presenting to the ED with complaining of weakness since this morning. On exam patient is awake, A+Ox3, VS WNL, afebrile, normal neurological exam without focal deficits, physical exam findings as above. Given reported symptoms and physical exam findings, initial differential includes but is not limited to ICH, UTI, pneumonia, electrolyte abnormality. Less likely ACS as patient denies any chest pain, dyspnea or palpitations. noted during physical exam including ambulation that patient appears significantly improved from the weakness he was experiencing this morning. Labs notable for significant thrombocytopenia, lower than baseline, without leukocytosis or anemia. UA notable for 3+ leukocytes, positive nitrites, 2+ blood, WBC clumps present, 3+ bacteria and only 0-2 epithelials. Urine culture from 11/26 positive for S. aureus, which had susceptibility to nitrofurantoin. Will treat current UTI with Bactrim. CT head notable for no evidence of ICH. CT chest notable for no evidence of pneumonia, cardiomegaly with coronary artery stenosis, small hiatal hernia, cholelithiasis, large left thyroid nodule. My interpretation is in agreement with the radiologist's interpretation. Case discussed with Dr. Hernandez who recommends infusion of platelets, however, patient is declining at this time. States that he feels better, his symptoms have improved, and he wants to go home. He is amenable to a referral to heme/onc for evaluation of etiology of his thrombocytopenia. Admission offered for further neuro workup given that his ABCD2 score is 4 points. Patient also declining hospital admission citing that his symptoms have improved, he has been ambulating around the exam room without difficulty. NIH score 0. No focal neurological deficits on exam. The patient has decided to leave against medical advice because his symptoms have resolved. * They have normal mental status and adequate capacity to make medical decisions. * The patient refuses full ED evaluation, platelet infusion, further neuro workup, hospital admission, and wants to be discharged. * The risks have been explained to the patient, including bleeding, worsening illness, chronic pain, permanent disability and . * The benefits of ED evaluation have also been explained, including the availability and proximity of nurses, physicians, monitoring, diagnostic testing, treatment and pain control. * The patient was able to understand and state the risks and benefits of ED evaluation. This was witnessed by nurse, Stephany, and me. * They had the opportunity to ask questions about their medical condition. Family also had the opportunity to ask questions about the patient's medical condition and are in agreement with discharge home. * The patient was treated to the extent that they would allow and knows that they may return for care at any time. Differential Diagnosis Differential Diagnoses: The differential diagnosis associated with the presentation includes As per [facility] Admission/Observation Consideration of admission/observation: Escalation of care including admission/observation considered Patient would have been admitted to the hospital had their work up had any findings where hospital admission was appropriate and their clinical presentation warranted hospital admission. Consult Healthcare Provider Management of the patient was discussed with: Blood Bank Order Control Clerk (Dr. Hernandez) Lab Data [facility] Lab Attestation statement: I reviewed the patient's lab results. As per [facility] 12/22/24 13:56 12/22/24 13:56 Labs: Lab Results 12/22/24 12/22/24 Range/Units 13:56 14:37 WBC 5.2 (4.8-10.8) X10*3/uL RBC 4.71 (4.60-5.80) X10*6/uL Hgb 14.8 (14.0-18.0) g/dl Hct 43.4 (42.0-52.0) % MCV 92.1 (80.0-98.0) fL MCH 31.4 (27.0-33.0) pg MCHC 34.1 (31.0-36.0) g/dl RDW 12.3 (11.0-16.0) % Plt Count 18 L* (160-400) X10*3/uL MPV 12.3 (9.4-12.4) fL Immature Gran % (Auto) 0.2 (0.0-0.4) % Neut % (Auto) 80.2 H (45-73) % Lymph % (Auto) 9.6 L (20-40) % Story % (Auto) 9.4 (2-11) % Eos % (Auto) 0.4 (0-4) % Baso % (Auto) 0.2 (0-2) % Lymph # (Auto) 0.5 L (1.2-4.9) X10*3/uL Story # (Auto) 0.5 (0.1-1.2) X10*3/uL Eos # (Auto) 0.0 (0.0-0.4) X10*3/uL Baso # (Auto) 0.0 (0.0-0.2) X10*3/uL Abs Immat Gran (auto) 0.01 (0.00-0.03) X10*3/uL Absolute Neuts (auto) 4.2 (2.0-8.3) x10*3/uL Absolute Nucleated RBC 0.000 (0.0-0.012) X10*3/uL Nucleated RBC % (auto) 0.0 (0.0-0.2) /100WBC Sodium 141 (135-145) mmol/L Potassium 4.5 (3.3-5.1) mmol/L Chloride 107 (96-108) mmol/L Carbon Dioxide 24 (22-29) mmol/L Anion Gap 15 (12-20) BUN 16 (9-16) mg/dL Creatinine 0.95 (0.5-1.4) mg/dL Estim Creat Clear Calc 57.8 Estimated GFR > 60 Random Glucose 101 (60-115) mg/dL Calcium 9.3 (8.4-10.2) mg/dL Magnesium 2.1 (1.6-2.6) mg/dL Total Bilirubin 1.3 H (0.0-1.0) mg/dL AST 20 (5-37) U/L ALT 18 (0-40) U/L Alkaline Phosphatase 63 (39-117) U/L Total Creatine Kinase 64 (38-174) U/L Troponin I High Sens 6.6 (<3.5-35.0) ng/L Total Protein 6.9 (6.5-8.0) g/dL Albumin 4.1 (3.5-5.0) g/dL Urine Color Dark Yellow Urine Appearance Turbid Urine pH 5.5 (5.0-9.0) Ur Specific [place] 1.020 (1.005-1.025) Urine Protein 30 (1+) H (Neg-Trace) mg/dL Urine Glucose (UA) Negative (Negative) mg/dL Urine Ketones Trace (Negative) mg/dL Urine Blood Moderate (2+) H (Negative) Urine Nitrite Positive H (Negative) Ur Leukocyte Esterase Large (3+) H (Negative) Urine RBC 0-2 (0-2) /HPF Urine WBC 21-50 (0-5) /HPF Urine WBC Clumps Present Ur Squamous Epith Cells 0-2 (0-2) /HPF Ur Transition Epith Cell Present Urine Bacteria 3+ (None Seen) Hyaline Casts 0-2 (0-2) /LPF Independent Interpretation I performed an independent interpretation of an: CT Scan Interpretation: CT head notable for no evidence of ICH. CT chest notable for no evidence of pneumonia, cardiomegaly with coronary artery stenosis, small hiatal hernia, cholelithiasis, large left thyroid nodule. Radiology Impression Discussion of test interpretation with radiology: I have reviewed the radiologist's reading. Radiologist Impression: FINDINGS: The visualized paranasal sinuses are clear. The mastoid air cells are clear. No calvarial fracture. Atherosclerotic intracranial vasculature. No evidence for mass or mass effect. No intracranial hemorrhage or abnormal extra-axial fluid collection. Basal ganglia mineralization present bilaterally. No CT evidence of acute infarct. The ventricles are proportional with the degree of moderate global cerebral volume loss without evidence of hydrocephalus. Basilar cisterns are patent. There are periventricular areas of low attenuation compatible with mild white matter small vessel disease. Posterior fossa appears unremarkable. IMPRESSION: 1. No acute intracranial findings. CT chest without IV contrast. COMPARISON: None provided. FINDINGS: Marked enlargement of the left lobe of the thyroid with thyroid nodule measuring minimally 6.8 cm. No supraclavicular or axillary lymphadenopathy. Ascending aorta and main pulmonary artery are normal in caliber. No pericardial effusion. Coronary artery calcifications present within the LAD and RCA. Cardiomegaly. Small hiatal hernia. No mediastinal lymphadenopathy. No pleural effusion. Minimal atelectasis along the posterior lower lobes. Trachea and central airways are clear. No significant bronchial wall thickening. No bronchiectasis. Cholelithiasis present within the gallbladder neck. No pericholecystic inflammatory changes. Flowing marginal osteophytes present throughout the thoracic spine. No acute fracture or suspicious bone lesion. IMPRESSION: 1. No acute intrathoracic findings. No evidence of pneumonia. 2. Cardiomegaly with coronary artery atherosclerosis. 3. Small hiatal hernia. 4. Cholelithiasis present within the gallbladder neck. No additional evidence for cholecystitis. 5. Large left thyroid lobe nodule measuring minimally 6.8 cm. Recommend correlation with nonemergent thyroid ultrasound if not already performed. Thyroid nodule has mass effect upon the esophagus and trachea shifting them to the right. Independent Historian Clinical information obtained from an independent historian. History obtained from or confirmed by: Spouse and Other (daughter) External Record Review External record reviewed: Inpatient record, Office record and Outpatient record Prescription Management I considered prescription management with: Antibiotic Critical Care Time Critical Care Time Critical Care Time: Yes Total Critical Care Time: 37 Attestation: I have personally provided critical care time exclusive of time spent on separately billable procedures. Time includes review of lab data, radiology results, discussion with consultants, and monitoring for potential decompensation. Intervention performed as documented. Discharge Plan Discharge Clinical Impression: UTI (urinary tract infection), Thrombocytopenia Patient Disposition: Home, Self-Care Instructions: Urinary Tract Infection in Men (DC), Thrombocytopenia (ED) Additional Instructions: You were evaluated in the emergency department today for weakness which is likely due to your urinary tract infection. You are being treated with a course of antibiotics, complete the full course as prescribed. You were noted to have a low platelet level on your labs in the emergency department today. You were offered a platelet infusion which you declined. You are being referred to the distresser for further evaluation of why your platelets have been low. You are also being referred to the urologist due to your recurrent UTIs. As discussed, with your low platelets you were at an increased risk for bleeding. If you are to fall, especially if you hit your head you should return to the emergency department for evaluation. You should also return to the emergency department if you have new confusion, weakness, facial droop, difficulty walking or speaking or any other new or concerning symptoms. [facility] will be contacting you within 2 business?days after being discharged from the Emergency?Department.? During this?phone call, they will inform you when your follow up appointment will be scheduled. If you have not received a call from [facility] after 2 business?days, please call the?office at [phone]. Prescriptions: New sulfamethoxazole-trimethoprim [Bactrim DS] 800-160 mg tablet 1 tab PO BID Qty: 13 0RF No Action halobetasol propionate 0.05 % ointment 1 appl topical BID 14 Days Qty: 50 3RF nitrofurantoin monohyd/m-cryst [Macrobid] 100 mg capsule 100 mg PO BID 10 Days Qty: 20 0RF Rx Instructions: must administer with a meal/food Referrals: Silvino Paz MD [Physician, Urology] Referral Note: recurrent UTIs Clinical Impression: UTI (urinary tract infection) Anusha Hernandez MD [Physician, Hematology & Oncology] - 1 week Referral Note: Evaluation of thrombocytopenia. Declined platelet infusion in the ED. Clinical Impression: Thrombocytopenia Stand Alone Forms: Against Medical Advice Interventions: ED Discharge Assessment Last Done: 12/22/24 16:56 Discharge Date/Time: 12/22/24 16:57 Print Language: Sinhala
--- NOTE | 2024-12-22 13:34 | ECG_ITS ---
Test Reason : WEAKNESS Blood Pressure : */* mmHG Vent. Rate : 83 BPM Atrial Rate : 83 BPM P-R Int : 216 ms QRS Dur : 90 ms QT Int : 372 ms P-R-T Axes : 7 -31 -3 degrees QTcB Int : 437 ms Sinus rhythm with 1st degree A-V block Left axis deviation Abnormal ECG No previous ECGs available Referred By: Fernando Saenz Electronically Signed By: HERRERA HURST
[2024-12-22 14:27] LABS: MANUAL DIFF FLAG NO
[2024-12-22 14:28] LABS: Basophils Percent Auto 0.2 % (0-2); Eosinophils Percent Auto 0.4 % (0-4); Hematocrit 43.4 % (42.0-52.0); Hemoglobin 14.8 g/dl (14.0-18.0); Imm Gran Abs Auto 0.01 X10*3/uL (0.00-0.03); Imm Gran Pct Auto 0.2 % (0.0-0.4); Lymphocytes Absolute Auto 0.5 X10*3/uL (1.2-4.9); Lymphocytes Percent Auto 9.6 % (20-40); Mean Corpuscular HGB Conc 34.1 g/dl (31.0-36.0); Mean Corpuscular Hemoglobin 31.4 pg (27.0-33.0); Mean Corpuscular Volume 92.1 fL (80.0-98.0); Mean Platelet Volume 12.3 fL (9.4-12.4); Monocytes Absolute Auto 0.5 X10*3/uL (0.1-1.2); Monocytes Percent Auto 9.4 % (2-11); Neutrophils Absolute Auto 4.2 x10*3/uL (2.0-8.3); Neutrophils Percent Auto 80.2 % (45-73); Red Blood Count 4.71 X10*6/uL (4.60-5.80); Red Cell Distribution Width 12.3 % (11.0-16.0); White Blood Count 5.2 X10*3/uL (4.8-10.8)
--- OUTSIDE RECORDS SUMMARY | 2024-12-22 14:37 | XMS_ITS | Encounter Summary ---
Author Organization [facility] Address [address] [place] [address] Care Team Providers Care Manager Development Name Role Phone Les Gomez MD Primary Care Provider Unavailab le Seth Gomez MD Primary Care Provider Unavail able Encounter Details Date Type Department Care Team Description 04/17/2013 Release of Information Medical Records [address] [place] [id number] Abstract, Provider Social History Tobacco Use Types Packs/Day Years Used Date Smoking Tobacco: Never Alcohol Use Standard Drinks/Week Comments Not Asked 0 (1 standard drink = 0.6 oz pur e alcohol) Sex Assigned at Date Recorded Not on file documented as of this encounter Plan of Treatment Not on file documented as of this encounter Visit Diagnoses Not on filedocumented in this encounter Care Teams Manager Development Relationship Specialty Start Date End Date Les Gomez MD PCP - General Internal Medicine 03/21/13 07/02/14 Seth Gomez MD PCP - General Internal Medicine 10/07/15 documented as of this encounter
[2024-12-22 14:42] LABS: Platelet Count 18 X10*3/uL (160-400)
[2024-12-22 14:43] VITALS: BP 147/66; PULSE 79; RESP 18; TEMP 37.3; O2SAT 95
[2024-12-22 14:45] LABS: Alanine Aminotransferase 18 U/L (0-40); Albumin Level 4.1 g/dL (3.5-5.0); Alkaline Phosphatase 63 U/L (39-117); Anion Gap 15 (12-20); Aspartate Amino Transferase 20 U/L (5-37); Bilirubin Total 1.3 mg/dL (0.0-1.0); Blood Urea Nitrogen 16 mg/dL (9-16); Calcium 9.3 mg/dL (8.4-10.2); Carbon Dioxide 24 mmol/L (22-29); Chloride 107 mmol/L (96-108); Creatinine Clr Calc Pharmacy 57.8; Estimated Glomerular Filt Rate > 60; Glucose Random 101 mg/dL (60-115); Magnesium 2.1 mg/dL (1.6-2.6); Potassium 4.5 mmol/L (3.3-5.1); Sodium 141 mmol/L (135-145); Total Protein 6.9 g/dL (6.5-8.0)
[2024-12-22 14:51] LABS: Appearance Urine Turbid; Color Urine Dark Yellow; Glucose Urine UA Negative (Negative); Leukocyte Esterase Urine Large (3+) (Negative); Nitrite Urine Positive (Negative); PH 5.5 (5.0-9.0); UMIC TRIGGER UACC YES; Urine Blood Moderate (2+) (Negative); Urine Ketones Trace mg/dL (Negative); Urine Protein 30 (1+) mg/dL (Neg-Trace)
[2024-12-22 14:52] LABS: Troponin-I High Sensitivity 6.6 ng/L (<3.5-35.0)
[2024-12-22 15:06] LABS: Bacteria Urine 3+ (None Seen); Hyaline Casts Urine 0-2 /LPF (0-2); RBC Urine 0-2 /HPF (0-2); Squamous Epithelial Cell Urine 0-2 /HPF (0-2); Transitional Epi Cells Urine Present; UACC Culture Trigger YES; WBC Clumps Urine Present; WBC Urine 21-50 /HPF (0-5)
[2024-12-22] MEDS: Sulfamethox/Trimeth 800/160 TABLET 1 TAB PO (16:46)
[2024-12-22 16:54] VITALS: BP 146/84; PULSE 84; RESP 16; TEMP 37.4; O2SAT 98
[2024-12-22 16:56] VITALS: BP 146/84; PULSE 84; RESP 16; TEMP 37.4; O2SAT 98
== END 2024-12-22 16:57 | disposition home or self-care (01) ==
PROVIDERS: Physician Assistant; Emergency Provider Emergency Medicine; PCP Family Medicine
DX: N39.0 Urinary tract infection, site not specified (principal); D69.6 Thrombocytopenia, unspecified; R31.9 Hematuria, unspecified; R26.2 Difficulty in walking, not elsewhere classified; K59.00 Constipation, unspecified; R30.0 Dysuria; R53.1 Weakness; R94.31 Abnormal electrocardiogram [ECG] [EKG]; I44.0 Atrioventricular block, first degree; Z79.899 Other long term (current) drug therapy
CPT/HCPCS: 36415; 70450; 71250; 80053; 81001; 82550; 83735; 84484; 85025; 87086; 87088; 87186; 93005; 99284

== ENCOUNTER → 2024-12-22 13:34 | Outpatient (BNV) | payer MEDICARE, SELFPAY | PROVIDERS: Emergency Provider Emergency Medicine; PCP Family Medicine; Visit Provider Radiology Diagnostic Radiology | DX: I51.7 Cardiomegaly (principal); I25.10 Atherosclerotic heart disease of native coronary artery without angina pectoris; K44.9 Diaphragmatic hernia without obstruction or gangrene; K80.20 Calculus of gallbladder without cholecystitis without obstruction; E04.1 Nontoxic single thyroid nodule; R53.1 Weakness | CPT/HCPCS: 70450; 71250 ==

== ENCOUNTER → 2024-12-22 13:34 | Outpatient (BNV) | payer MEDICARE, SELFPAY | PROVIDERS: Emergency Provider Emergency Medicine; PCP Family Medicine; Visit Provider Internal Medicine | DX: I44.0 Atrioventricular block, first degree (principal) | CPT/HCPCS: 93010 ==

== ENCOUNTER 2025-02-04 12:49 | Outpatient (REF) | payer MEDICARE, SELFPAY | END 2025-02-04 12:50 | disposition home or self-care (01) | LOC: HO.LAB 12:49 | PROVIDERS: PCP Family Medicine; Visit Provider Nurse Practitioner Family | DX: N39.0 Urinary tract infection, site not specified (principal); R97.20 Elevated prostate specific antigen [PSA]; Z13.89 Encounter for screening for other disorder | CPT/HCPCS: 81003; 87086; 87088; 87186; 99202 ==

== ENCOUNTER 2025-02-04 12:49 | Outpatient (AMB) | payer MEDICARE, SELFPAY ==
--- NOTE | 2025-02-04 13:08 | A.OFFVIS_ITS ---
Intake Visit Reasons: Urinary tract infection Intake Note: Patient is present for URINARY TRACT INFECTION Urology Medication:NONE Antibiotic Allergy:NONE Blood Thinner:NONE Feed Adviser Required: No Allergies No Known Allergies Allergy (Verified 02/04/25 19:10) Medication List - Last Reconciled 02/04/25 by FABRICIO Titus folic acid 1 mg PO DAILY halobetasol propionate 0.05% 1 appl topical BID 14 days sulfamethoxazole-trimethoprim 800-160 mg (Bactrim DS) 1 tab PO BID 10 days HPI Comments Details: Obie is a very pleasant 89-year-old male patient of Dr. Rizo who was accompanied by his significant other at today's office visit. He has a past medical history of thrombocytopenia. He presents to the office today as a new patient for recurrent urinary tract infections as well as an elevated PSA. In discussion with the patient today he reports having recently seeked emergency room care in December for weakness at which time he was noted to have a urinary tract infection in recommendations were made for urology referral for further assessment evaluation. He denies ever having followed up with Urology in the past. He reports noting over the last few months he has been having issues with urinary tract infections as well as his thrombocytopenia. He discusses his upcoming appointment with Oncology for further management. In office urinalysis results reviewed with the patient today positive nitrates. Patient reports feeling shortly after completion of antibiotic therapy as prescribed by ER physician he did started experiencing UTI like symptoms. He reports intermittent episodes of urinary urgency and frequency as well as dysuria. In review of patient's chart it appears urine cultures are as follows: 01/21, 03/25, 11/24, and 12/25 Staphylococcus aureus In review of patient's chart it appears PSAs are as follows: 01/21 5.5, 03/24 5.2 SALVADOR was offered however deferred. We did discussed potential causes of recurrent urinary tract infections as well as further treatment options and risks and benefits of these treatment options. We discussed obtaining retroperitoneal ultrasound and redraw of PSA status post completion of antibiotic therapies as planned. He denies incontinence, hematuria, foul smelling urine, changes to urinary stream, flank pain, fever, and or chills. He does report nocturia up to 3 times per night. In review of patient's chart it appears he reported gross hematuria to ER physician however upon discussion with the patient and his today he denies any episodes of gross hematuria. All questions were answered. He otherwise offers no other issues or concerns at this time. [facility] Medical History Right leg DVT History of blood clots Social History Household Members: Spouse Housing: House Patient Tobacco Use Status: Never used Tobacco e-Cigarette/Vaping Use: Never Used Second Hand Smoke Exposure: No Use of substances other than those prescribed or required for medical reasons: No Have you been hit, kicked, punched, or otherwise hurt by someone within the past year? If so, by whom?: No Do you feel safe in your current relationship?: Yes Do you have thoughts of harming others: None Do you have a plan to hurt others: No Plan service: Yes Current occupational status: retired Current occupational exposures/hazards: No Cognitive needs: No Hearing needs: No Vision needs: Yes Review of Systems Const All systems reviewed & are unremarkable except as noted in HPI and below Physical Exam Const General: cooperative, healthy appearing, comfortable, no acute distress, well developed, alert and awake Orientation/consciousness: patient oriented x3 Limitations: no limitations HEENT Head: Yes normal to inspection, Yes normocephalic and Yes atraumatic Ears: hearing grossly normal bilaterally Eyes General: appearance normal, both eyes and all related structures Neck Neck: Yes normal visual inspection and Yes trachea midline Chest Chest palpation & inspection: normal inspection of the chest Resp Effort & Inspection: normal respiratory effort and able to speak in complete sentences Cardio Rate: regular rate GI Inspection: Yes normal to inspection General: Yes no CVA tenderness Back/Spine/Pelvis Back: no CVA tenderness Skin General skin exam: no rashes or lesions noted Neuro General: patient oriented x3 Extrem General: Yes normal to inspection Psych Appearance: grossly normal and well kempt Mental Status: mental status grossly normal Speech and movement: Normal speech and movement present and Clear speech present Affect: normal affect Attitude: cooperative Thought process: Normal thought process present Thought content: Normal thought content present Insight: Fair insight present (Psych) Judgement: Fair judgement present (Psych) Results AMB Urinalysis, Automated UA Leukoctes 500 John/uL Last Edit by SULMA Otto on 02/04/25 14:32 UA Nitrite Positive Last Edit by Jo Rivas [facility] on 02/04/25 14:32 UA Urobilinogen 0.2 mg/dL Last Edit by Jo Rivas [facility] on 02/04/25 14:3 2 UA Protein 30 mg/dL Last Edit by Jo Rivas [facility] on 02/04/25 14:32 UA pH 7.5 Last Edit by Jo Rivas [facility] on 02/04/25 14:32 UA Blood 10 Michael/uL Last Edit by Jo Rivas [facility] on 02/04/25 14:32 UA Specific [place] 1.010 Last Edit by Jo Rivas [facility] on 02/04/25 14: 32 UA Ketone Negative Last Edit by Jo Rivas [facility] on 02/04/25 14:32 UA Bilirubin 0 mg/dL Last Edit by Jo Rivas [facility] on 02/04/25 14:32 UA Glucose 0 mg/dL Last Edit by Jo Rivas [facility] on 02/04/25 14:32 Results Reviewed Results Reviewed: Laboratory Last Values Urine pH (Auto) 7.5 02/04/25 14:30 Specific [place] (Auto) 1.010 02/04/25 14:30 Urine Protein (Auto) 30 mg/dL 02/04/25 14:30 Glucose (UA)(Auto) 0 mg/dL 02/04/25 14:30 Urine Ketones (Auto) Negative 02/04/25 14:30 Urine Blood (Auto) 10 Imchael/uL 02/04/25 14:30 Urine Nitrite (Auto) Positive 02/04/25 14:30 Urine Bilirubin (Auto) 0 mg/dL 02/04/25 14:30 Urine Urobilinogen (Auto) 0.2 mg/dL 02/04/25 14:30 Leukocyte Esterase (Auto) 500 John/uL 02/04/25 14:30 Assessment & Plan Assessment & Plan (1) Elevated PSA: Code(s): R97.20 - Elevated prostate specific antigen [PSA] Category: Medical (2) Recurrent urinary tract infection: Code(s): N39.0 - Urinary tract infection, site not specified Category: Medical Plan In office urinalysis results reviewed with the patient today; as noted above; will send for urine culture. Previous ER records were reviewed as well as previous PSA labs; as noted above. Will obtain retroperitoneal ultrasound for further assessment evaluation. Start Bactrim as discussed and prescribed. SALVADOR was offered however deferred We did discussed potential causes of recurrent urinary tract infections as well as further treatment options and risks and benefits of these treatment options. Will obtain redraw of PSA status post completion of antibiotic therapy as planned. All questions were answered. Follow-up in 6-8 weeks with labs and imaging to be completed prior; or sooner with any issues, concerns, and or questions. Orders: Orders AMB Urinalysis Automated Today Z13.9 - Encounter for screening, unspecified Urine Culture Today N39.0 - Urinary tract infection, site not specified US retroperitoneal comp Today N39.0 - Urinary tract infection, site not specified PSA,Total (Free>4and<10) Today N39.0 - Urinary tract infection, site not specified, R97.20 - Elevated prostate specific antigen [PSA] Medications: New sulfamethoxazole-trimethoprim 800-160 mg (Bactrim DS) 1 tab PO BID 20 tabs 0RF 10 days N39.0 - Urinary tract infection, site not specified Patient Instructions: The patient had an opportunity to ask questions regarding the treatment plan. All questions were answered. Physical exam, labs, and imaging were discussed and reviewed in detail. As well as risks, benefits, and discussion of treatment choices. No major barriers to understanding were identified. The patient expre ssed understanding and agreement with the above treatment plan. The patient was made aware they should contact our office by phone for worsening of their current condition, the appearance of new symptoms, or with any questions or concerns. Compliance is encouraged with any medications and follow up testing that is ordered. It is a privilege to be allowed the opportunity to participate in? your urological care.? Again, if you have any questions or concerns If you have any questions or concerns please do not hesitate to contact me. The office is [phone]. This note is constructed using voice recognition software. While every effort has been made to ensure accuracy screw machine operator swiss type errors may have been included. Yours sincerely, FABRICIO Titus Coding Level of Care Code New Pt Level 4 (48305) Diagnoses Elevated PSA R97.20 Recurrent urinary tract infection N39.0
--- OUTSIDE RECORDS SUMMARY | 2025-02-04 13:21 | XMS_ITS | Encounter Summary ---
Author Organization [facility] Address [address] [place] [address] Care Team Providers Care Police Superintendent Name Role Phone Les Gomez MD Primary Care Provider Unavailab le Seth Gomez MD Primary Care Provider Unavail able Encounter Details Date Type Department Care Team Description 04/17/2013 Release of Information Medical Records [address] [place] [id number] Abstract, Provider Social History Tobacco Use Types [...] on filedocumented in this encounter Care Teams Police Superintendent Relationship Specialty Start Date End Date Les Gomez MD PCP - General Internal Medicine 03/21/13 07/02/14 Seth Gomez MD PCP - General Internal Medicine 10/07/15 documented as of this encounter
== END 2025-02-04 13:54 | disposition home or self-care (01) ==
LOC: HO.HUSH 12:49
PROVIDERS: PCP Family Medicine; Visit Provider Nurse Practitioner Family
DX: R97.20 Elevated prostate specific antigen [PSA] (principal); N39.0 Urinary tract infection, site not specified; Z13.9 Encounter for screening, unspecified
CPT/HCPCS: 99204

== ENCOUNTER 2025-02-21 07:59 | Outpatient (REF) | payer MEDICARE, SELFPAY ==
[2025-02-21 11:10] LABS: Appearance Urine Clear; Glucose Urine UA Negative (Negative); PH 8.0 (5.0-9.0); Specific Gravity - Urine 1.020 (1.005-1.025); UMIC TRIGGER UACC YES
[2025-02-21 11:46] LABS: PSA,Total (Free>4and<10) 4.56 ng/mL (0.00-4.00)
[2025-02-21 11:54] LABS: Alanine Aminotransferase 22 U/L (0-40); Albumin Level 4.2 g/dL (3.5-5.0); Alkaline Phosphatase 67 U/L (39-117); Anion Gap 12 (12-20); Aspartate Amino Transferase 25 U/L (5-37); Blood Urea Nitrogen 13 mg/dL (9-16); Calcium 9.2 mg/dL (8.4-10.2); Carbon Dioxide 27 mmol/L (22-29); Chloride 108 mmol/L (96-108); Cholesterol 223 mg/dL (<200); Estimated Glomerular Filt Rate > 60; HDL Cholesterol 44 mg/dL (>40); Potassium 4.7 mmol/L (3.3-5.1); Sodium 142 mmol/L (135-145); Total Protein 6.8 g/dL (6.5-8.0); Triglycerides 113 mg/dL (<150)
[2025-02-24 12:59] LABS: Free Prostate Spec Ag 1.4 ng/mL; Percent Free Prostate Spec Ag 30 % (calc) (>25)
== END 2025-02-21 08:00 | disposition home or self-care (01) ==
LOC: HO.WFDLDS 07:59
PROVIDERS: Nurse Practitioner Family; Visit Provider Family Medicine
DX: Z00.00 Encounter for general adult medical examination without abnormal findings (principal); Z12.5 Encounter for screening for malignant neoplasm of prostate; N39.0 Urinary tract infection, site not specified; E78.00 Pure hypercholesterolemia, unspecified; R97.20 Elevated prostate specific antigen [PSA]
CPT/HCPCS: 36415; 80053; 80061; 81001; 84153; 84154

== ENCOUNTER 2025-02-28 09:08 | Outpatient (AMB) | payer MEDICARE, SELFPAY ==
--- NOTE | 2025-02-28 09:32 | MHC.PC.OV ---
Vital Signs 02/28/25 09:37 02/28/25 09:47 02/28/25 10:54 Height 5 ft 10 in Weight 176 lb 6 oz BMI 25.3 BP 177/77 H 189/90 H 160/74 H Blood Pressure Location Lt brachial Lt brachial Lt brachial Position Sitting Sitting Sitting Respiration 16 Pulse 55 Pulse Source Palpation Temp 97.5 F Temp Source Oral Pulse Oximetry (%) 98 Oxygen Delivery Method Room Air Intake Visit Reasons: f/u HLD, labs Intake Note: patient here for follow upp on HLD and labs Cloth Shrinking Machine Operator Required: No Allergies No Known Allergies Allergy (Verified 02/28/25 09:32) Tobacco use date assessed: 02/28/25 Fall risk assessment: No Falls in past year Last assessed Fall Risk: 02/28/25 Dental Screening Dental Screen Date: 02/28/25 Did you have a dental visit in the last 12 months?: Yes Did you have a dental problem in the last 6 months where you did not have access to dental care?: No Was dental information given to patient?: Patient has dentist HPI f/u HLD, labs HPI Details 89 y/o male presents to f.u HLD, labs. Labs drawn 02/21/25. Reviewed labs with pt. Triglycerides 113. TC 223. LDL 157. HDL 44. PSA 4.91. BP today 189/90. Pt notes blood pressure at home are in the 130s systolic range. [facility] Medical History Right leg DVT History of blood clots Social History Household Members: Spouse Housing: House Patient Tobacco Use Status: Never used Tobacco e-Cigarette/Vaping Use: Never Used Second Hand Smoke Exposure: No service: Yes Current occupational status: retired Current occupational exposures/hazards: No Cognitive needs: No Hearing needs: No Vision needs: Yes Questionnaire Thrive Questionnaire Date Thrive assessed: 11/26/24 I am a: Patient What is your living situation today?: I have a steady place to live Within the past 12 months, did the food you bought not last and you didn't have the money to get more?: Never true Within the past 12 months, did you worry whether your food would run out before you got money to buy more?: Never true Do you have trouble paying for medicines?: No Do you have trouble getting transportation to medical appointments?: No Do you have trouble paying your heating and electricity bill?: No Do you have trouble taking care of your child, family member or friend?: No Do you have trouble with day-to-day activities such as bathing, preparing meals, shopping, managing finances, etc.?: No Are you currently unemployed and looking for a job?: No Are you interested in more education?: No Please select the resources that you would like help with: None Currently or been in a relationship where the following occur: No concerns reported THRIVE Score: 0 CHEY-7 AMB Questionnaire CHEY-7 Date CHEY - 7 assessed: 11/26/24 Feeling afraid as if something awful might happen: 0 = Not at all Source: Developed by Drs. Billy Cates, Niru Downs, Jagjit Lilly and colleagues, with an educational eric from [employer]. Review of Systems Const Denies chills, Denies fatigue, Denies fever(s), Denies headache(s) and Denies weakness ENT Denies dizziness and Denies headache(s) Card Denies dyspnea Resp Denies cough, Denies dyspnea, Denies wheezing and Denies other (shortness of breath) Musc Denies numbness and Denies tingling Neuro Denies dizziness, Denies headache(s), Denies numbness, Denies tingling and Denies weakness Psych Denies anxiety and Denies depression Endo Denies fatigue Aller/Immun Denies wheezing Physical exam (Primary Care) Vital Signs: Last Vital Signs Temp 97.5 F 02/28/25 09:37 Pulse 55 02/28/25 09:37 Resp 16 02/28/25 09:37 BP 189/90 H 02/28/25 09:47 Pulse Ox 98 02/28/25 09:37 Oxygen Delivery Method Room Air 02/28/25 09:37 BMI result Body Mass Index 25.3 Tobacco/Smoking Status: Tobacco use Status Tobacco use date assessed 02/28/25 02/28/25 09:43 Patient Tobacco Use Status Never used Tobacco 02/28/25 09:43 e-Cigarette/Vaping Use Never Used 02/28/25 09:43 Thrive Assessment: Date of Thrive Assessment Date Thrive assessed 11/26/24 02/28/25 09:43 Currently or been in a relationship where the following occur: No concerns reported Const General: well developed; No acute distress Nutritional Appearance: well nourished Orientation/consciousness: patient oriented x3 HENMT Head: Yes normocephalic and Yes atraumatic Eyes General: appearance normal, both eyes and all related structures Pupils: Equal, round and reactive pupils present EOM: EOMs intact bilaterally Resp Effort & Inspection: normal respiratory effort Auscultation: clear to auscultation bilaterally Cardio Rate: regular rate Rhythm: regular rhythm Heart sounds: S1 normal heart sound present, S2 normal heart sound present, no gallops, no murmurs and no rubs Neuro General: patient oriented x3 and gait normal Cranial nerves: Yes Equal, round and reactive pupils present Psych Affect: normal affect Coding Level of Care Code Est Pt Level 3 (52720) Diagnoses Hypertension I10 Hypercholesterolemia E78.00 Assessment & Plan Assessment & Plan (1) Hypertension: Code(s): I10 - Essential (primary) hypertension Category: Medical Plan: Blood pressures are consistently high at office visits. Does come down with some relaxation of time He says that his systolic blood pressures are often in the 130 home. No low blood pressure Start losartan (2) Hypercholesterolemia: Code(s): E78.00 - Pure hypercholesterolemia, unspecified Category: Medical Plan: Lipids are elevated Will hold off on using a medication at this time as patient is 89 years old and we are already starting losartan for his blood pressure. Encouraged a diet lower in saturated fats and cholesterol Will continue to monitor Medications: New losartan 25 mg PO DAILY 90 tabs 3RF 90 days
[2025-02-28 09:37] VITALS: BP 177/77; PULSE 55; RESP 16; TEMP 36.4; O2SAT 98; BMI 25.3
[2025-02-28 09:47] VITALS: BP 189/90
--- OUTSIDE RECORDS SUMMARY | 2025-02-28 10:01 | XMS_ITS | Encounter Summary ---
Author Organization [facility] Address [address] [place] [address] Care Team Providers Care Private Chef Name Role Phone Les Gomez MD Primary Care Provider Unavailab le Seth Gomez MD Primary Care Provider Unavail able Encounter Details Date Type Department Care Team Description 04/17/2013 Release of Information Medical Records [address] [place] [id number] Abstract, Provider Social History Tobacco Use Types [...] on filedocumented in this encounter Care Teams Private Chef Relationship Specialty Start Date End Date Les Gomez MD PCP - General Internal Medicine 03/21/13 07/02/14 Seth Gomez MD PCP - General Internal Medicine 10/07/15 documented as of this encounter
--- OUTSIDE RECORDS SUMMARY | 2025-02-28 10:01 | XMS_ITS | Clinical Summary ---
Author Organization [facility] Address [address] [place] [address] Care Team Providers Care Communications And Signals Supervisor Name Role Phone Seth Gomez MD Primary [...] unknown Mother tumor Paternal Grandfather (Age 72) [place] Paternal Grandmother unknown Social History Tobacco Use [...] 60 03/22/2016 10:50 AM EDT Temperature 36.9 C (98.5 F) 03/22/2016 10:50 AM EDT Respiratory Rate 16 03/22/2016 10:50 AM EDT [...] 04/16/2013 FALL RISK ASSESSMENT 12/16/2015 12/15/2014, 04/16/20 13 CHOLESTEROL SCREENING 04/19/2018 04/19/2013 BMI CHECK/ADVISE 07/03/2024 03/22/2016 INFLUENZA (#1) 2025 Care Teams Communications And Signals Supervisor Relationship Specialty Start Date End Date Seth Gomez MD PCP - General Internal Medicine 10/07/15
[2025-02-28 10:54] VITALS: BP 160/74
== END 2025-02-28 10:58 | disposition home or self-care (01) ==
LOC: HO.HMCFM 09:09
PROVIDERS: PCP Family Medicine; Visit Provider Family Medicine
DX: I10 Essential (primary) hypertension (principal); E78.00 Pure hypercholesterolemia, unspecified

== ENCOUNTER → 2025-02-28 09:08 | Outpatient (BNVA) | payer MEDICARE, SELFPAY | PROVIDERS: PCP Family Medicine; Visit Provider Family Medicine | DX: I10 Essential (primary) hypertension (principal); E78.00 Pure hypercholesterolemia, unspecified | CPT/HCPCS: 99212 ==

== ENCOUNTER 2025-04-23 09:31 | Outpatient (REF) | payer MEDICARE, SELFPAY ==
--- NOTE | ~2025-04-23 | US_ITS ---
EXAMINATION: US THYROID CLINICAL INFORMATION: Follow-up 6.8 cm nodule identified on recent CT chest dated December 22, 2024. COMPARISON: Correlated to CT chest dated December 22, 2024 TECHNIQUE: Linear transducer grayscale and color Doppler examination with attention to the region of the thyroid. FINDINGS: SIZE: Measurements of the thyroid lobes and nodules are given in sagittal, anteroposterior and transverse dimensions respectively. Right Thyroid Lobe: 3.5 x 2.0 x 1.0 cm, volume 3.8 mL. Parenchyma: The gland echotexture is heterogeneous. Thyroid vascularity is normal. Left Thyroid Lobe: 7.2 x 5.7 x 4.7 cm, volume 101 mL. Parenchyma: The gland echotexture is heterogeneous. Thyroid vascularity is normal. Isthmus: 0.3 cm in maximum AP dimension. Estimated total number of nodules greater than or equal to 1 cm: 2. Application Support Consultant nodules are described as follows: 1. Location: Left lobe. Size: 6.3 x 5.2 x 5.0 cm, volume 85 mL. Nodule characteristics: Composition: Solid (2). Echogenicity: Isoechoic (1). Shape: Taller than wide (3). Margins: Smooth (0). Echogenic Foci: Macrocalcifications (1). ACR TI-RADS total points: 7 ACR TI-RADS category: 5 2. Location: Upper pole left lobe. Size: 1.8 x 1.3 x 1.0 cm, volume 1.4 mL. Nodule characteristics: Composition: Solid/almost completely solid (2). Echogenicity: Isoechoic (1). Shape: Taller than wide (3). Margins: Ill-defined (0). Echogenic Foci: None (0). ACR TI-RADS total points: 6 ACR TI-RADS category: 4 3. Location: Midportion, right lobe. Size: 0.4 x 0.3 x 0.4 cm, volume 0.0 29 mL. Nodule characteristics: Composition: Solid (2). Echogenicity: Isoechoic (1). Shape: Not taller than wide (0). Margins: Smooth (0). Echogenic Foci: None (0). ACR TI-RADS total points: 3 ACR TI-RADS category: 3 NODES: No lymphadenopathy is seen in the tissue surrounding the thyroid gland. US/US thyroid IMPRESSION: ACR TI-RADS category: 5 and 4 on the left thyroid lobe nodules and 3 on the right thyroid lobe nodule ACR TI-RADS RECOMMENDATION REFERENCE: Ultrasound-guided fine-needle aspiration, followup ultrasound, no further follow up. * TR1 (0 point) and TR2 (2 points): No FNA or follow up. * TR3 (3 points): FNA if more than or equal to 2.5 cm in maximum dimension, followup ultrasound in 1, 3 and 5 years if 1.5 to 2.4 cm in maximum dimension. * TR4 (4-6 points): FNA if more than or equal to 1.5 cm in maximum dimension, followup ultrasound in 1, 2, 3 and 5 years if 1 to 1.4 cm in maximum dimension. * TR5 (more than or equal to 7 points): FNA if more than or equal to 1 cm in maximum dimension, followup ultrasound every year for 5 years if 0.5 to 0.9 cm in maximum dimension. * TR3, TR4 or TR5 nodules that are below the size threshold for followup receive no follow up. Electronically signed by: Elvin Figueroa MD 04/23/2025 10:49 AM EDT
--- NOTE | ~2025-04-23 | US_ITS ---
CLINICAL HISTORY: N39.0 - Urinary tract infection, site not specified US retroperitoneum with color Doppler Comparison: None Findings: Right kidney normal size and echotexture, 8.9 cm length. No hydronephrosis. Normal color flow. No nephrolithiasis. No renal masses. Left kidney normal size and echotexture, 10.9 cm in length. No hydronephrosis. Normal color flow. No nephrolithiasis. No renal masses. Urinary bladder is unremarkable. Prevoid volume 150.0 mL. Postvoid volume 54.0 mL. Ureteral jets are visualized bilaterally Prostate measures 4.2 x 4.5 x 5.2 cm Impression: 1. Normal kidneys 2. Elevated postvoid residual 3. Prostate volume 51.2 mL This document has been electronically signed by: Johan Herman MD on 04/24/2025 15:39:41
== END 2025-04-23 09:32 | disposition home or self-care (01) ==
LOC: HO.US 09:31
PROVIDERS: PCP Family Medicine; Visit Provider Nurse Practitioner Family
DX: E04.1 Nontoxic single thyroid nodule (principal); N39.0 Urinary tract infection, site not specified
CPT/HCPCS: 76536; 76770

== ENCOUNTER → 2025-04-23 09:33 | Outpatient (BNV) | payer MEDICARE, SELFPAY | PROVIDERS: PCP Family Medicine; Visit Provider Radiology Diagnostic Radiology | DX: E04.2 Nontoxic multinodular goiter (principal) | CPT/HCPCS: 76536 ==

== ENCOUNTER 2025-05-07 12:21 | Outpatient (AMB) | payer MEDICARE, SELFPAY ==
--- NOTE | 2025-05-07 12:24 | MHC.OFFVIS ---
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 Rizo. He has a past medical history of thrombocytopenia. He presents to the office today for follow-up. Of note, patient was seen approximately 3 months ago at which time a retroperitoneal ultrasound and redraw of PSA was ordered and performed. These results were reviewed and communicated with the patient today. 04/26 bilateral kidneys are normal in size and echotexture. No hydronephrosis, renal masses, and or nephrolithiasis noted bilaterally. The urinary bladder is unremarkable. Postvoid bladder volume 54 mL. Prostate measures approximately 51 mLs. PSAs are as follows: PSA: 01/21 5.5, 03/24 5.2, 02/24 4.9 % free PSA 30% PCPT risk calculator results reviewed with the patient today. 76% chance that prostate biopsy is negative for prostate cancer, 14% chance of low-grade prostate cancer, and 10% chance of high-grade prostate cancer. We did discuss potential causes of elevated PSA as well as further treatment options and risks and benefits of these treatment options. He denies having had any UTIs and or UTI like symptoms since his last urinary tract infection in December 2024. He currently denies any bothersome urinary issues or concerns. In office urinalysis results reviewed with the patient today. He denies incontinence, hematuria, foul smelling urine, changes to urinary stream, flank pain, fever, and or chills. He does report nocturia up to 3 times per night however feels he is managing this well independently. All questions were answered.He otherwise offers no other issues or concerns at this time. Previous urine cultures are as follows: 01/21, 03/25, 11/24, and 12/25 Staphylococcus aureus, 02/24 Staphylococcus aureus [facility] Medical History Right leg DVT History of blood clots Social History Household Members: Spouse Housing: House Patient Tobacco Use Status: Never used Tobacco e-Cigarette/Vaping Use: Never Used Second Hand Smoke Exposure: No service: Yes Current occupational status: retired Current occupational exposures/hazards: No Cognitive needs: No Hearing needs: No Vision needs: Yes Review of Systems Const All systems reviewed & are unremarkable except as noted in HPI and below Physical Exam Const General: cooperative, healthy appearing, comfortable, no acute distress, well developed, alert and awake Orientation/consciousness: patient oriented x3 Limitations: no limitations HEENT Head: Yes normal to inspection, Yes normocephalic and Yes atraumatic Ears: hearing grossly normal bilaterally Eyes General: appearance normal, both eyes and all related structures Neck Neck: Yes normal visual inspection and Yes trachea midline Chest Chest palpation & inspection: normal inspection of the chest Resp Effort & Inspection: normal respiratory effort and able to speak in complete sentences Cardio Rate: regular rate GI Inspection: Yes normal to inspection General: Yes no CVA tenderness Back/Spine/Pelvis Back: no CVA tenderness Skin General skin exam: no rashes or lesions noted Neuro General: patient oriented x3 Extrem General: Yes normal to inspection Psych Appearance: grossly normal and well kempt Mental Status: mental status grossly normal Speech and movement: Normal speech and movement present and Clear speech present Affect: normal affect Attitude: cooperative Thought process: Normal thought process present Thought content: Normal thought content present Insight: Fair insight present (Psych) Judgement: Fair judgement present (Psych) Results AMB Urinalysis, Automated UA Leukoctes 0 John/uL Last Edit by SULMA Otto on 05/07/25 12:54 UA Nitrite Negative Last Edit by SULMA Otto on 05/07/25 12:54 UA Urobilinogen 0.2 mg/dL Last Edit by SULMA Otto on 05/07/25 12:54 UA Protein 0 mg/dL Last Edit by SULMA Otto on 05/07/25 12:54 UA pH 6.0 Last Edit by SULMA Otto on 05/07/25 12:54 UA Blood 0 Michael/uL Last Edit by SULMA Otto on 05/07/25 12:54 UA Specific Wheeler 1.025 Last Edit by SULMA Otto on 05/07/25 12:54 UA Ketone Negative Last Edit by SULMA Otto on 05/07/25 12:54 UA Bilirubin 0 mg/dL Last Edit by SULMA Otto on 05/07/25 12:54 UA Glucose 0 mg/dL Last Edit by SULMA Otto on 05/07/25 12:54 Results Reviewed Results Reviewed: Laboratory Last Values Urine pH (Auto) 6.0 05/07/25 12:47 Specific Wheeler (Auto) 1.025 05/07/25 12:47 Urine Protein (Auto) 0 mg/dL 05/07/25 12:47 Glucose (UA)(Auto) 0 mg/dL 05/07/25 12:47 Urine Ketones (Auto) Negative 05/07/25 12:47 Urine Blood (Auto) 0 Michael/uL 05/07/25 12:47 Urine Nitrite (Auto) Negative 05/07/25 12:47 Urine Bilirubin (Auto) 0 mg/dL 05/07/25 12:47 Urine Urobilinogen (Auto) 0.2 mg/dL 05/07/25 12:47 Leukocyte Esterase (Auto) 0 John/uL 05/07/25 12:47 Date of Service: 04/23/25 Procedure(s): US retroperitoneal comp Findings: Right kidney normal size and echotexture, 8.9 cm length. No hydronephrosis. Normal color flow. No nephrolithiasis. No renal masses. Left kidney normal size and echotexture, 10.9 cm in length. No hydronephrosis. Normal color flow. No nephrolithiasis. No renal masses. Urinary bladder is unremarkable. Prevoid volume 150.0 mL. Postvoid volume 54.0 mL. Ureteral jets are visualized bilaterally Prostate measures 4.2 x 4.5 x 5.2 cm Impression: 1. Normal kidneys 2. Elevated postvoid residual 3. Prostate volume 51.2 mL Assessment & Plan Assessment & Plan (1) Elevated PSA: Code(s): R97.20 - Elevated prostate specific antigen [PSA] Category: Medical (2) Recurrent urinary tract infection: Code(s): N39.0 - Urinary tract infection, site not specified Category: Medical (3) Enlarged prostate: Code(s): N40.0 - Benign prostatic hyperplasia without lower urinary tract symptoms Category: Medical (4) Nocturia: Code(s): R35.1 - Nocturia Category: Medical Plan In office urinalysis results reviewed with the patient today; as noted above. Recent PSA results reviewed with the patient today; as noted above. We did discussed potential causes of elevated PSA as well as further treatment options and risks and benefits of these treatment options. All questions were answered. Start finasteride as discussed and prescribed. He denies any bothersome urinary issues or concerns. He reports be happy with current voiding parameters. We did discussed potential causes of recurrent urinary tract infections as well as further treatment options and risks and benefits of these treatment options. Will obtain PSA in 6 months. Follow-up in 6 months with PSA and PVR; or sooner with any issues, concerns, and or questions. Orders: Orders AMB Urinalysis Automated Today Z13.9 - Encounter for screening, unspecified PSA,Total (Free>4and<10) 6 Months R97.20 - Elevated prostate specific antigen [PSA] Medications: New finasteride [id number] [facility] [id number] Member [id number] 5 mg PO DAILY 90 tabs 1RF 90 days N40.1 - Benign prostatic hyperplasia with lower urinary tract symptoms, R33.9 - Retention of urine, unspecified Patient Instructions: The patient had an opportunity to ask questions regarding the treatment plan. All questions were answered. Physical exam, labs, and imaging were discussed and reviewed in detail. As well as risks, benefits, and discussion of treatment choices. No major barriers to understanding were identified. The patient expressed understanding and agreement with the above treatment plan. The patient was made aware they should contact our office by phone for worsening of their current condition, the appearance of new symptoms, or with any questions or concerns. Compliance is encouraged with any medications and follow up testing that is ordered. It is a privilege to be allowed the opportunity to participate in? your urological care.? Again, if you have any questions or concerns If you have any questions or concerns please do not hesitate to contact me. The office is [phone]. This note is constructed using voice recognition software. While every effort has been made to ensure accuracy windows deployment technician errors may have been included. Yours sincerely, ABRIL TitusP-BC Coding Level of Care Code Est Pt Level 4 (59648) Complex EM visit Add On G2211 Diagnoses Elevated PSA R97.20 Recurrent urinary tract infection N39.0 Enlarged prostate N40.0 Nocturia R35.1
== END 2025-05-07 13:22 | disposition home or self-care (01) ==
LOC: HO.HUSH 12:22
PROVIDERS: PCP Family Medicine; Visit Provider Nurse Practitioner Family
DX: R97.20 Elevated prostate specific antigen [PSA] (principal); N39.0 Urinary tract infection, site not specified; N40.0 Benign prostatic hyperplasia without lower urinary tract symptoms; R35.1 Nocturia; Z13.9 Encounter for screening, unspecified
CPT/HCPCS: 99214; G2211

== ENCOUNTER → 2025-05-07 12:21 | Outpatient (BNVA) | payer MEDICARE, SELFPAY | PROVIDERS: PCP Family Medicine; Visit Provider Nurse Practitioner Family | DX: R97.20 Elevated prostate specific antigen [PSA] (principal); N40.0 Benign prostatic hyperplasia without lower urinary tract symptoms; R35.1 Nocturia | CPT/HCPCS: 81003; 99212 ==

== ENCOUNTER 2025-06-04 11:08 | Outpatient (REF) | payer MEDICARE, SELFPAY | END 2025-06-04 11:09 | disposition home or self-care (01) | LOC: HO.WFDLDS 11:08 | PROVIDERS: PCP Family Medicine; Visit Provider Family Medicine | DX: I10 Essential (primary) hypertension (principal); E78.00 Pure hypercholesterolemia, unspecified; R30.0 Dysuria | CPT/HCPCS: 81001; 87086; 99212 ==

== ENCOUNTER 2025-06-04 11:08 | Outpatient (AMB) | payer MEDICARE, SELFPAY ==
--- NOTE | 2025-06-04 11:45 | MHC.PC.OV ---
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 Allergies No Known Allergies Allergy (Verified 06/04/25 11:46) Medication List - Last Reconciled 06/04/25 by Wyatt Rizo MD finasteride 5 mg PO DAILY 90 days folic acid 1 mg PO DAILY halobetasol propionate 0.05% 1 appl topical BID 14 days losartan 25 mg PO DAILY 90 days Tobacco use date assessed: 06/04/25 Fall risk assessment: No Falls in past year Last assessed Fall Risk: 06/04/25 Dental Screening Dental Screen Date: 06/04/25 Did you have a dental visit in the last 12 months?: Yes Did you have a dental problem in the last 6 months where you did not have access to dental care?: No Was dental information given to patient?: Patient has dentist HPI f/u HTN, HLD HPI Details 89 y/o male presents to f/u HTN, HLD. Blood pressure today 148/67, 50p. He is on losartan 25mg daily. Pt brought his BP logs from home and have been in the 120s, 110s. Has complaints of dysuria. Hx of UTI in January which was treated with Bactrim. [facility] Medical History Right leg DVT History of blood clots Social History Household Members: Spouse Housing: House Patient Tobacco Use Status: Never used Tobacco e-Cigarette/Vaping Use: Never Used Second Hand Smoke Exposure: No service: Yes Current occupational status: retired Current occupational exposures/hazards: No Cognitive needs: No Hearing needs: No Vision needs: Yes Questionnaire Thrive Questionnaire Date Thrive assessed: 11/26/24 I am a: Patient What is your living situation today?: I have a steady place to live Within the past 12 months, did the food you bought not last and you didn't have the money to get more?: Never true Within the past 12 months, did you worry whether your food would run out before you got money to buy more?: Never true Do you have trouble paying for medicines?: No Do you have trouble getting transportation to medical appointments?: No Do you have trouble paying your heating and electricity bill?: No Do you have trouble taking care of your child, family member or friend?: No Do you have trouble with day-to-day activities such as bathing, preparing meals, shopping, managing finances, etc.?: No Are you currently unemployed and looking for a job?: No Are you interested in more education?: No Please select the resources that you would like help with: None Currently or been in a relationship where the following occur: No concerns reported THRIVE Score: 0 CHEY-7 AMB Questionnaire CHEY-7 Date CHEY - 7 assessed: 11/26/24 Source: Developed by Drs. Billy Cates, Niru Downs, Jagjit Lilly and colleagues, with an educational eric from [employer]. Review of Systems Const Denies chills, Denies fatigue, Denies fever(s), Denies headache(s) and Denies weakness ENT Denies dizziness and Denies headache(s) Card Denies dyspnea Resp Denies cough, Denies dyspnea, Denies wheezing and Denies other (shortness of breath) Musc Denies numbness and Denies tingling Neuro Denies dizziness, Denies headache(s), Denies numbness, Denies tingling and Denies weakness Psych Denies anxiety and Denies depression Endo Denies fatigue Aller/Immun Denies wheezing Physical exam (Primary Care) Vital Signs: Last Vital Signs Temp 97.4 F 06/04/25 11:47 Pulse 50 06/04/25 11:47 Resp 16 06/04/25 11:47 BP 148/67 H 06/04/25 11:47 Pulse Ox 96 06/04/25 11:47 Oxygen Delivery Method Room Air 06/04/25 11:47 BMI result Body Mass Index 25.3 Tobacco/Smoking Status: Tobacco use Status Tobacco use date assessed 06/04/25 06/04/25 11:55 Patient Tobacco Use Status Never used Tobacco 06/04/25 11:55 e-Cigarette/Vaping Use Never Used 06/04/25 11:55 Thrive Assessment: Date of Thrive Assessment Date Thrive assessed 11/26/24 06/04/25 11:55 Currently or been in a relationship where the following occur: No concerns reported Const General: well developed; No acute distress Nutritional Appearance: well nourished Orientation/consciousness: patient oriented x3 HENMT Head: Yes normocephalic and Yes atraumatic Eyes General: appearance normal, both eyes and all related structures Pupils: Equal, round and reactive pupils present EOM: EOMs intact bilaterally Resp Effort & Inspection: normal respiratory effort Neuro General: patient oriented x3 and gait normal Cranial nerves: Yes Equal, round and reactive pupils present Psych Affect: normal affect Coding Level of Care Code Est Pt Level 4 (59679) Diagnoses Hypertension I10 Hypercholesterolemia E78.00 Dysuria R30.0 Assessment & Plan Assessment & Plan (1) Hypertension: Code(s): I10 - Essential (primary) hypertension Category: Medical Plan: Patient brings in a log of his blood pressures Blood pressure in the office is elevated however his blood pressures at home are consistently well controlled. Goal is less than 140/90 Continue losartan as prescribed (2) Hypercholesterolemia: Code(s): E78.00 - Pure hypercholesterolemia, unspecified Category: Medical Plan: We discussed at patient's last visit that his cholesterol levels were elevated. Will recheck this and discuss at next visit (3) Dysuria: Code(s): R30.0 - Dysuria Category: Medical Plan History of UTI in January and this was treated with Bactrim Patient notes that he has similar symptoms though not as severe. He will give a urine sample today which we will send for culture and sensitivity Will start him on Bactrim empirically Orders: Orders Comprehensive [place]. Panel Fast 06/04/25 E78.00 - Pure hypercholesterolemia, unspecified, Z00.00 - Encounter for general adult medical examination without abnormal findings UA CC w/rflx Micro + Cult 06/04/25 R30.0 - Dysuria, Z00.00 - Encounter for general adult medical examination without abnormal findings Urine Culture 06/04/25 R30.0 - Dysuria Lipid Panel 06/04/25 E78.00 - Pure hypercholesterolemia, unspecified, Z00.00 - Encounter for general adult medical examination without abnormal findings
[2025-06-04 11:47] VITALS: BP 148/67; PULSE 50; RESP 16; TEMP 36.3; O2SAT 96; BMI 25.3
--- OUTSIDE RECORDS SUMMARY | 2025-06-04 13:20 | XMS_ITS ---
Author Organization Unknown ENCOUNTERS Encounter Performer Location Date Diagnosis Diagnosis Status Emergency [address] [id number] [facility] Pre Admit [address] [address] [id number] *Note: Encounters from your own facility or health system may be excluded. Allergies, Adverse Reactions, Alerts Allergen Type Severity Identification Date Medications Name Date Quantity Days Supplied GPI Number
== END 2025-06-04 13:03 | disposition home or self-care (01) ==
LOC: HO.HMCFM 11:09
PROVIDERS: PCP Family Medicine; Visit Provider Family Medicine
DX: I10 Essential (primary) hypertension (principal); E78.00 Pure hypercholesterolemia, unspecified; R30.0 Dysuria

== ENCOUNTER 2025-06-04 12:48 | Outpatient (REF) | payer MEDICARE, SELFPAY ==
[2025-06-04 18:59] LABS: Appearance Urine Cloudy; Glucose Urine UA Negative (Negative); PH 5.0 (5.0-9.0); Specific Gravity - Urine 1.020 (1.005-1.025); UMIC TRIGGER UA YES
== END 2025-06-04 12:49 | disposition home or self-care (01) ==
LOC: HO.LAB 12:48
PROVIDERS: Visit Provider Family Medicine
DX: Z00.00 Encounter for general adult medical examination without abnormal findings (principal); R30.0 Dysuria
CPT/HCPCS: 81001; 87086